=== PATIENT | male | born 1945 | race Caucasian/White ===

== ENCOUNTER 2017-08-11 12:11 | Inpatient (IN) | payer MEDICARE, OTHER ==
[~2017-08-11] VITALS: Ht 170.2 cm; Wt 62.6 kg
[~2017-08-11 12:11] MED LIST: ALBU0.63 IH; ALBU117P IH; ASPI81CT89 PO; BUDE180P IH; HYDR25TA32 PO; LAC PO; LEVO750T6 PO; LISI-420 PO; METH4TAB3 PO; SIMV40TA1 PO
[2017-08-11 12:53] VITALS: BP 169/92
--- NOTE | 2017-08-11 13:04 | NUR ---
PT AMBULATES BACK TO THE LOBBY
--- NOTE | 2017-08-11 13:17 | NUR ---
DR. RODRIGUEZ BEDSIDE EVALUATING PATIENT
--- NOTE | 2017-08-11 13:17 | NUR ---
71 M BIB SELF W C/O PRODUCTIVE COUGH YELLOW PLEGM, CHILLS, FEVER, "NOT FEELING GOOD" X SINCE LAST NIGHT; PT ALSO REPORTS OF CHEST PAIN WHILE COUGHING AND EPISODES OF CHEST PAIN LAST NIGHT. PT DENIES ANY CP CURRENTLY; PT IS AOX4. RR ARE EVEN AND UNLABORED. PT POSITIONED TO COMFORT, BED DOWN. NAD. VSS. ER MD AWARE OF PT STATUS. WILL CONTINUE TO MONITOR.
--- NOTE | 2017-08-11 13:17 | NUR ---
PATIENT TO ER BED 1
[2017-08-11] MEDS ORDERED: ASPIRIN 325 MG TAB PO ONE (13:20)
[2017-08-11] MEDS ORDERED: NACL 0.9% 500 ML IV ONE (13:20)
[2017-08-11] MEDS ORDERED: ALBUTEROL SULFATE/IPRATROPIU 3 ML SOL IH ONE (13:20)
[2017-08-11 13:43] LABS: BASOPHILS # (AUTO) 0.4 K/uL (0.00-0.22); BASOPHILS % (AUTO) 2.2 % (0.0-2.0); EOSINOPHILS % (AUTO) 0.1 % (0.0-4.0); HEMATOCRIT 50.6 % (36-52); HEMOGLOBIN 16.4 g/dL (12.0-18.0); LYMPHOCYTES # (AUTO) 0.7 K/uL (2.0-11.5); LYMPHOCYTES % (AUTO) 4.7 % (20.5-51.1); MEAN CORPUSCULAR HEMOGLOBIN 30 pg (27-31); MEAN CORPUSCULAR HGB CONC 32 g/dL (33-37); MEAN CORPUSCULAR VOLUME 91 fL (80-94); MONOCYTES # (AUTO) 0.6 K/uL (0.8-1.0); MONOCYTES % (AUTO) 3.6 % (1.7-9.3); NEUTROPHILS # (AUTO) 14.2 K/uL (1.8-7.7); NEUTROPHILS % (AUTO) 89.4 % (42.2-75.2); PLATELET COUNT (AUTO) 161 K/uL (140-450); RED BLOOD CELL COUNT(AUTO) 5.57 MIL/uL (4.20-6.10); RED CELL DISTRIBUTION WIDTH 14.1 % (11.6-13.7); WHITE BLOOD COUNT (AUTO) 15.9 K/uL (4.8-10.8)
[2017-08-11 13:55] LABS: POTASSIUM 4.5 mmol/L (3.5-5.1)
[2017-08-11 14:04] LABS: ALBUMIN 4.2 g/dL (3.4-5.0); ANION GAP 14.4 (8-16); CARBON DIOXIDE 29.1 mmol/L (21-32); CREATININE 1.5 mg/dL (0.7-1.3)
[2017-08-11 14:17] LABS: TOTAL BILIRUBIN 2.8 mg/dL (0.0-1.0)
[2017-08-11] MEDS ORDERED: NACL 0.9% 1,000 ML IV SCH (14:34)
[2017-08-11] MEDS ORDERED: DOCUSATE SODIUM 100 MG GELCAP PO PRN (14:35)
[2017-08-11] MEDS ORDERED: LORazepam 0.5 MG TAB PO PRN (14:35)
[2017-08-11] MEDS ORDERED: ALBUTEROL SULFATE/IPRATROPIU 3 ML SOL IH PRN (14:35)
[2017-08-11] MEDS ORDERED: MORPHINE SULFATE 2 MG/ML SYR IVP PRN (14:35)
[2017-08-11] MEDS ORDERED: ACETAMINOPHEN 325 MG TAB PO PRN (14:35)
[2017-08-11] MEDS ORDERED: ONDANSETRON 4 MG/2 ML VIAL IM/IVP PRN (14:35)
[2017-08-11] MEDS ORDERED: HYDROcodone/APAP 7.5/325 MG 1 TAB PO PRN (14:35)
[2017-08-11] MEDS ORDERED: ZOLPIDEM 5 MG TAB PO PRN (14:35)
[2017-08-11] MEDS ORDERED: ATRN INH ×2 (15:17)
[2017-08-11] MEDS ORDERED: PRON INH (15:17)
[2017-08-11] MEDS ORDERED: FISH1CAP3 PO (15:17)
[2017-08-11] MEDS ORDERED: ALEN70TA52 PO (15:17)
--- NOTE | 2017-08-11 15:25 | NUR ---
PT ARRIVED ON THE UNIT WITH 2 ER NURSES. GAVE REPORT AND LEFT. PT IS AWAKE AND ORIENTED. AMBULATED FROM THE GURNEY TO BED. GAIT STEADY. INTRODUCED MYSELF AND UPDATED THE BOARD. PT IS FEBRILE. 100.1 F ORAL TEMP. OTHERWISE V/S UNREMARKABLE. SKIN INTACT. ADMINISTERED YELLOW SOCKS, YELLOW BAND, AND YELLOW SIGN. AOX4. IV ON R AC 20G SL. MRSA DONE, ORDERED PT PB&J SANDWICH AND MILK FOR SNACK. WILL CONTINUE TO MONITOR PT.
[2017-08-11 15:26] LABS: PROTHROMBIN TIME 11.1 secs (10.8-13.4)
--- NOTE | 2017-08-11 15:30 | NUR ---
Patient will be admitted to care of [facility]. Admited to tele. Will go to room 104. Belongings list completed. bedsdie Report to christina cisse.
[2017-08-11] MEDS ORDERED: methylPREDNISolone SS 125 MG/2 ML VIAL IVP SCH (15:37)
[2017-08-11 15:40] LABS: CHOL/HDL RATIO 2.1 (1-4.5); FREE T4 (FREE THYROXINE) 1.11 ng/dL (0.76-1.46); MAGNESIUM 1.7 mg/dL (1.8-2.4); PHOSPHORUS 2.6 mg/dL (2.5-4.9); THYROID STIMULATING HORMONE 0.69 uIU/mL (0.34-3.74)
[2017-08-11 17:04] VITALS: BP 144/75
[2017-08-11] MEDS ORDERED: LEVOFLOXACIN 500 MG/D5W PREMIX 100 ML IV SCH (17:25)
--- NOTE | 2017-08-11 18:02 | NUR ---
PT EATING DINNER. ADMINISTERED LEVAQUIN. PT TOLERATING WELL. NO SIGNS OF DISTRESS. NO COMPLAINTS. WILL CONTINUE TO MONITOR PT.
[2017-08-11] MEDS: BUDESONIDE 0.25 MG/2 ML NEBU INH SCH (18:50)
[2017-08-11] MEDS: ALBUTEROL SULFATE/IPRATROPIU 3 ML SOL IH SCH (18:50)
--- NOTE | 2017-08-11 19:26 | NUR ---
ENDORSED PT TO THE WEDGER NURSE AT BEDSIDE FOR CONTINUITY OF CARE. PT IN STABLE CONDITION.
--- NOTE | 2017-08-11 19:27 | NUR ---
RECEIVED REPORT FROM DAY NURSE, PT IN STABLE CONDITION. NO S/S OF DISTRESS NOTED. PT IN STABLE CONDITION. PT IS AAOX4, ON ROOM AIR. IV TO THE R AC 20G, PATENT AND INTACT, INFUSING WELL. RESPIRATIONS ARE EVEN AND UNLABORED. SKIN IS WARM AND DRY TO TOUCH, COLOR WNL. INITIAL ASSESSMENT COMPLETED. PLAN OF CARE DISCUSSED WITH PT AT THE BEDSIDE, ALL SAFETY PRECAUTIONS MET, CALL LIGHT WITHIN REACH, BOARD UPDATED, WILL CONTINUE TO MONITOR Addendum: 08/11/17 at 1935 by Geni Hudson RN SKIN IS INTACT
[2017-08-11 20:00] VITALS: BP 126/62
[2017-08-11] MEDS: methylPREDNISolone SS 125 MG/2 ML VIAL IVP SCH (20:55)
[2017-08-12] VITALS: BP 114/64
[2017-08-12 04:00] VITALS: BP 124/68
[2017-08-12] MEDS: methylPREDNISolone SS 125 MG/2 ML VIAL IVP SCH ×2 (05:25→13:02)
[2017-08-12] MEDS: ALBUTEROL SULFATE/IPRATROPIU 3 ML SOL IH SCH ×2 (06:17→13:07)
[2017-08-12] MEDS: BUDESONIDE 0.25 MG/2 ML NEBU INH SCH (06:25)
[2017-08-12 07:02] LABS: HEMATOCRIT 43.3 % (36-52); HEMOGLOBIN 14.7 g/dL (12.0-18.0); MEAN CORPUSCULAR HEMOGLOBIN 31 pg (27-31); MEAN CORPUSCULAR HGB CONC 34 g/dL (33-37); MEAN CORPUSCULAR VOLUME 90 fL (80-94); PLATELET COUNT (AUTO) 136 K/uL (140-450); RED BLOOD CELL COUNT(AUTO) 4.79 MIL/uL (4.20-6.10); RED CELL DISTRIBUTION WIDTH 13.9 % (11.6-13.7); WHITE BLOOD COUNT (AUTO) 17.9 K/uL (4.8-10.8)
--- NOTE | 2017-08-12 07:10 | NUR ---
RECEIVED BEDSIDE REPORT FROM DRIVER WHEELCHAIR NURSE. PATIENT IS A&OX4. PATIENT DOES NOT COMPLAIN OF ANY CHEST PAIN AT THIS TIME. PATIENT'S RESPIRATIONS ARE UNLABORED AND SYMMETRICAL. PATIENT DOES NOT HAVE ANY RESPIRATORY DISTRESS OR DEPRESSION AT THIS TIME. PATIENT DOES NOT PRESENT WITH ANY FEVER. INSTRUCTED PATIENT TO CALL IF HE NEEDS ANY HELP WITH ANYTHING AND SHOWED HIM HIS CALL LIGHT. PATIENT DEMONSTRATED HOW TO USE THE CALL LIGHT. BED LOWERED AND CALL LIGHT WITHIN REACH. WILL CONTINUE TO MONITOR PATIENT.
--- NOTE | 2017-08-12 07:30 | NUR ---
GAVE REPORT TO DAY NURSE, PT IN STABLE CONDITION. NO S/S OF DISTRESS NOTED
[2017-08-12 07:47] LABS: LYMPHOCYTES % (MANUAL) 4 % (20-46); MONOCYTES % (MANUAL) 2 % (5-12)
[2017-08-12 07:48] LABS: ANION GAP 9.9 (8-16); CARBON DIOXIDE 30.4 mmol/L (21-32); CREATININE 1.3 mg/dL (0.7-1.3); POTASSIUM 4.3 mmol/L (3.5-5.1)
[2017-08-12 07:51] LABS: PHOSPHORUS 1.6 mg/dL (2.5-4.9)
[2017-08-12 08:00] VITALS: BP 139/77
[2017-08-12] MEDS ORDERED: ASPIRIN 81 MG TAB.CHEW PO SCH (09:00)
[2017-08-12] MEDS ORDERED: LISINOPRIL 20 MG TAB PO SCH (09:00)
[2017-08-12] MEDS ORDERED: LACTOBACILLUS RHAMNOSUS GG 1 EACH CAP PO SCH (09:00)
--- NOTE | 2017-08-12 09:09 | NUR ---
PATIENT HAS BEEN SCREENED AND CATEGORIZED MODERATE NUTRITION RISK. PATIENT WILL BE SEEN WITHIN 3-5 DAYS OF ADMISSION. 08/13/17-08/15/[address]
--- NOTE | 2017-08-12 11:37 | NUR ---
CM NOTE PER SEISMOGRAPHER MATTHEW, SEND REVIEWS ONLY TO [facility]. INITIAL REVIEW FAXED TO [facility] [phone] LUCIEN # [phone].
[2017-08-12 12:00] VITALS: BP 127/91
[2017-08-12] MEDS ORDERED: LEVO750T2 PO ×2 (13:08→15:58)
[2017-08-12] MEDS ORDERED: ASPI81CT95 PO ×2 (13:08→15:58)
[2017-08-12] MEDS ORDERED: LACT10CA PO ×2 (13:08→15:58)
--- NOTE | 2017-08-12 13:10 | NUR ---
PATIENT IS LAYING DOWN WATCHING TELEVISION. ADMINISTERED SOLUMEDROL TO PATIENT VIA IV LINE ON LEFT FOREARM. PATIENT TOLERATED WELL. PATIENT IS IN STABLE CONDITION.
[2017-08-12] MEDS ORDERED: guaiFENesin 20 MG/ML UDC PO PRN (15:10)
--- NOTE | 2017-08-12 15:17 | NUR ---
PT WATCHING TV. NO SIGNS OF DISTRESS. NO COMPLAINTS AT THIS TIME. WILL CONTINUE TO MONITOR PT.
[2017-08-12] MEDS ORDERED: SODIUM PHOS / POTASSIUM PHOS 1 PKT PDR PO SCH (15:37)
[2017-08-12] MEDS ORDERED: METH4TAB3 PO (15:55)
[2017-08-12 16:00] VITALS: BP 126/67
[2017-08-12 16:07] LABS: BARBITURATE, URINE NEG. ng/ml (NEG <=200); BENZODIAZEPINE, URINE NEG. ng/mL (NEG <=200); CANNABINOID, URINE NEG. ng/mL (NEG <=50); COCAINE, URINE NEG. ng/mL (NEG <=300); OPIATE, URINE NEG. ng/mL (NEG <=2000); PHENCYCLIDINE SCREEN,URINE NEG. ng/mL (NEG <=25)
[2017-08-12 16:24] LABS: APPEARANCE,URINE CLEAR (CLEAR); BILIRUBIN,URINE NEGATIVE (NEGATIVE); BLOOD, URINE NEGATIVE (NEGATIVE); COLOR,URINE YELLOW (YELLOW); LEUKOCYTE ESTERASE ,URINE NEGATIVE (NEGATIVE); NITRITE, URINE NEGATIVE (NEGATIVE); PH,URINE 5.5 (5.0-9.0); UGLUCOSE 2+ (NEGATIVE)
--- NOTE | 2017-08-12 17:47 | NUR ---
DISCHARGE INSTRUCTIONS GIVEN TO THE SALES REPRESENTATIVE GRAPHIC ART NURSE. PT VERBALIZED UNDERSTANDING. REMOVED IV, CANNULA INTACT. NO BLEEDING NOTED. REMOVED TELE MONITOR. REMOVED ID BANDS. PT WILL GET DRESSED, HAVE DINNER AND WHEN FAMILY COMES TO PICK HIM UP, HE WILL LET US KNOW SO WE CAN TAKE HIM OUT IN A WHEELCHAIR.
--- NOTE | 2017-08-12 18:20 | NUR ---
FAMILY MEMBER HERE. PT IS READY TO GO. REFUSED WHEELCHAIR. WALKED OUT WITH FAMILY AT HIS SIDE AND GINA ZHONG. PT IN STABLE CONDITION.
[2017-08-12] MEDS ORDERED: SIMVASTATIN 40 MG TAB PO SCH (21:00)
[2017-08-12] MEDS ORDERED: LEVOFLOXACIN 250 MG/D5 PREMIX 50 ML IV SCH (21:00)
[2017-08-12] MEDS ORDERED: methylPREDNISolone SS 40 MG/ML VIAL IVP SCH (21:00)
[2017-08-13 07:25] LABS: T4 (THYROXINE) 7.9 ug/dL (4.5 - 12.0)
== END 2017-08-12 18:20 | disposition home or self-care (01) | DRG 205 ==
LOC: MED 12:11 → MTU 14:34
PROVIDERS: ADMIT Family Medicine Sports Medicine; ATTEND Family Medicine Sports Medicine
DX: M94.0 Chondrocostal junction syndrome [Tietze] (principal); N17.0 Acute kidney failure with tubular necrosis; J96.01 Acute respiratory failure with hypoxia; I50.43 Acute on chronic combined systolic (congestive) and diastolic (congestive) heart failure; J44.1 Chronic obstructive pulmonary disease with (acute) exacerbation; Q25.43 Congenital aneurysm of aorta; I42.9 Cardiomyopathy, unspecified; I11.0 Hypertensive heart disease with heart failure; I25.2 Old myocardial infarction; Z87.891 Personal history of nicotine dependence; Z79.899 Other long term (current) drug therapy; M81.0 Age-related osteoporosis without current pathological fracture; I45.10 Unspecified right bundle-branch block; Z88.8 Allergy status to other drugs, medicaments and biological substances
CPT/HCPCS: 36415; 71045; 80048; 80053; 80305; 81003; 82150; 83036; 83605; 83690; 83735; 83880; 84100; 84436; 84439; 84443; 84479; 84484; 85025; 85610; 85730; 87040; 87081; 87086; 87804; 93005; 94640; 99285; J1956; J2930; J7030; J7620; J7626; Q0092

== ENCOUNTER 2017-11-20 11:42 | Emergency (ER) | payer MEDICARE ==
[~2017-11-20] VITALS: Ht 170.2 cm; Wt 59.0 kg
[~2017-11-20 11:42] MED LIST changes: +ACET-2863 PO; -ALBU0.63 IH; -ALBU117P IH; +ALEN70TA52 PO; +AMOX-999 PO; -ASPI81CT89 PO; +ATRN INH; -BUDE180P IH; +DOCU-299 PO; +FISH1CAP3 PO; -HYDR25TA32 PO; -LAC PO; +LACT1.4C PO; -LEVO750T6 PO; -METH4TAB3 PO; +PRON INH
--- NOTE | 2017-11-20 11:46 | NUR ---
PT AMBULATED BACK TO ALIS WITH STEADY GAIT
[2017-11-20 11:48] VITALS: BP 199/97
--- NOTE | 2017-11-20 11:59 | NUR ---
PT AMBULATED TO ER BED 10
--- NOTE | 2017-11-20 12:15 | NUR ---
71m bib self with c/o left rib pain upon inspiration x yeterday "when picking up a piece of paper on the floor". Patient denies any injury or fall. No ecchymosis note to left rib area. Patient denies any cp or sob. Pt is aox4 with steady gait. RR are even and unlabored. Pulse ox=99% on ra. No acute distress noted. Awaiting er md green. Will continue to monitor.
--- NOTE | 2017-11-20 12:21 | NUR ---
Patient being evaluated by DR HERNANDES at bedside.
[2017-11-20] MEDS ORDERED: NACL 0.9% 1,000 ML IV SCH (12:38)
[2017-11-20] MEDS ORDERED: KETOROLAC 30 MG/ML VIAL IVP ONE (12:40)
[2017-11-20] MEDS ORDERED: LACTULOSE 20 GM/30 ML UDC PO ONE (12:40)
[2017-11-20] MEDS ORDERED: MORPHINE SULFATE 2 MG/ML SYR IVP ONE (12:40)
[2017-11-20 13:15] LABS: BASOPHILS % (AUTO) 0.9 % (0.0-2.0); EOSINOPHILS # (AUTO) 0.3 K/uL (0-0.4); EOSINOPHILS % (AUTO) 4.9 % (0.0-4.0); HEMATOCRIT 47.1 % (36-52); HEMOGLOBIN 15.4 g/dL (12.0-18.0); LYMPHOCYTES # (AUTO) 1.3 K/uL (2.0-11.5); LYMPHOCYTES % (AUTO) 24.7 % (20.5-51.1); MEAN CORPUSCULAR HEMOGLOBIN 29 pg (27-31); MEAN CORPUSCULAR HGB CONC 33 g/dL (33-37); MEAN CORPUSCULAR VOLUME 89.9 fL (80-94); MONOCYTES # (AUTO) 0.6 K/uL (0.8-1.0); MONOCYTES % (AUTO) 11.6 % (1.7-9.3); NEUTROPHILS # (AUTO) 2.9 K/uL (1.8-7.7); NEUTROPHILS % (AUTO) 57.9 % (42.2-75.2); PLATELET COUNT (AUTO) 173 K/uL (140-450); RED BLOOD CELL COUNT(AUTO) 5.23 MIL/uL (4.20-6.10); RED CELL DISTRIBUTION WIDTH 14.7 % (11.6-13.7); WHITE BLOOD COUNT (AUTO) 5.1 K/uL (4.8-10.8)
[2017-11-20] MEDS ORDERED: MORPHINE SULFATE 4 MG/ML SYR ONE (13:17)
[2017-11-20 13:20] LABS: ANION GAP 8.1 (8-16); CARBON DIOXIDE 33.3 mmol/L (21-32); CREATININE 1.2 mg/dL (0.7-1.3); POTASSIUM 4.4 mmol/L (3.5-5.1)
[2017-11-20 13:27] LABS: ALBUMIN 3.5 g/dL (3.4-5.0); TOTAL BILIRUBIN 0.9 mg/dL (0.0-1.0)
[2017-11-20 13:40] LABS: PROTHROMBIN TIME 10.4 secs (10.8-13.4)
[2017-11-20 14:26] LABS: APPEARANCE,URINE CLEAR (CLEAR); BILIRUBIN,URINE NEGATIVE (NEGATIVE); BLOOD, URINE NEGATIVE (NEGATIVE); COLOR,URINE YELLOW (YELLOW); LEUKOCYTE ESTERASE ,URINE NEGATIVE (NEGATIVE); NITRITE, URINE NEGATIVE (NEGATIVE); PH,URINE 6.5 (5.0-9.0); UGLUCOSE NEGATIVE (NEGATIVE)
--- NOTE | 2017-11-20 14:36 | NUR ---
Patient being reevaluated by DR HERNANDES at bedside.
[2017-11-20 16:30] VITALS: BP 170/82
--- NOTE | 2017-11-20 16:30 | NUR ---
Patient discharged with v/s stable. Written and verbal after care instructions given and explained. Patient alert, oriented and verbalized understanding of instructions. Ambulatory with steady gait. All questions addressed prior to discharge. ID band removed. Patient advised to follow up with PMD. Rx of Albuterol, Prednisone, and Cipro given. Patient educated on indication of medication including possible reaction and side effects. Opportunity to ask questions provided and answered.
== END 2017-11-20 16:30 | disposition home or self-care (01) ==
LOC: MED 11:42
DX: K57.30 Diverticulosis of large intestine without perforation or abscess without bleeding (principal); J44.9 Chronic obstructive pulmonary disease, unspecified; I10 Essential (primary) hypertension; R94.31 Abnormal electrocardiogram [ECG] [EKG]; I25.2 Old myocardial infarction; Z88.8 Allergy status to other drugs, medicaments and biological substances; Z79.899 Other long term (current) drug therapy; Z87.891 Personal history of nicotine dependence
CPT/HCPCS: 36415; 71045; 74176; 80053; 81003; 82150; 82550; 83690; 84484; 85025; 85379; 85610; 85730; 93005; 96361; 96374; 96375; 99285; J1885; J2270; J7030; Q0092

== ENCOUNTER 2018-08-11 11:29 | Emergency (ER) | payer MEDICARE, OTHER ==
[~2018-08-11] VITALS: Ht 170.2 cm; Wt 63.0 kg
[~2018-08-11 11:29] MED LIST changes: -ACET-2863 PO; -ALEN70TA52 PO; +ALEN70TA9 PO; +HYDR-5123 PO
--- NOTE | 2018-08-11 11:31 | NUR ---
PT AMBULATES TO BED 6
[2018-08-11 11:35] VITALS: BP 171/88
--- NOTE | 2018-08-11 11:37 | NUR ---
RT AT BEDSIDE.
[2018-08-11] MEDS ORDERED: ALBUTEROL SULFATE/IPRATROPIU 3 ML SOL IH ONE ×3 (11:40→16:54)
--- NOTE | 2018-08-11 11:45 | NUR ---
A 72M EMPHYSEMA PT BIB SELF WITH C/O CHRONIC SOB WORSE THIS MORNING WITH PRODUCTIVE COUGH. PER PT HE WAS USING HIS NEBULIZER YESTERDAY MORNING AND ALBUTEROL INHALER THIS MORNING WITH NO RELIEF. USES ACCESSORY MUSCLE, SPEAK SHORT SENTENCES. SPO2 96% ON ROOM AIR. HE WAS LAST SEEN ON 07/25/2018 FOR SOB. DENIES ANY PAIN AT THIS TIME. SYMMETRICAL CHEST RISE AND FALL NOTED. PT. IS WARM AND DRY TO TOUCH. ER MD MADE AWARE. SAFETY PRECAUTIONS IMPLEMENTED. WILL CONTINUE TO MONITOR.
[2018-08-11] MEDS ORDERED: NACL 0.9% 1,000 ML IV SCH (11:48)
[2018-08-11] MEDS ORDERED: PIPERACILLIN/TAZOBACTAM 3.375 GM in DEXTROSE 5% 50 ML IV ONE (11:50)
[2018-08-11] MEDS ORDERED: methylPREDNISolone SS 125 MG/2 ML VIAL IVP ONE (11:50)
--- NOTE | 2018-08-11 12:00 | NUR ---
influenza a and b specimen collected. given to mushroom laborer
[2018-08-11 12:16] LABS: BASOPHILS # (AUTO) 0.1 K/uL (0.00-0.22); BASOPHILS % (AUTO) 0.7 % (0.0-2.0); EOSINOPHILS # (AUTO) 0.1 K/uL (0-0.4); EOSINOPHILS % (AUTO) 0.8 % (0.0-4.0); HEMATOCRIT 47.3 % (36-52); HEMOGLOBIN 15.4 g/dL (12.0-18.0); LYMPHOCYTES # (AUTO) 1.3 K/uL (2.0-11.5); LYMPHOCYTES % (AUTO) 14.6 % (20.5-51.1); MEAN CORPUSCULAR HEMOGLOBIN 30 pg (27-31); MEAN CORPUSCULAR HGB CONC 33 g/dL (33-37); MEAN CORPUSCULAR VOLUME 91.3 fL (80-94); MONOCYTES # (AUTO) 0.7 K/uL (0.8-1.0); MONOCYTES % (AUTO) 8.3 % (1.7-9.3); NEUTROPHILS # (AUTO) 6.8 K/uL (1.8-7.7); NEUTROPHILS % (AUTO) 75.6 % (42.2-75.2); PLATELET COUNT (AUTO) 184 K/uL (140-450); RED BLOOD CELL COUNT(AUTO) 5.18 MIL/uL (4.20-6.10); RED CELL DISTRIBUTION WIDTH 14.7 % (11.6-13.7)
[2018-08-11] MEDS ORDERED: PIPERACILLIN/TAZOBACTAM 3.375 GM VIAL IV ONE (12:19)
--- NOTE | 2018-08-11 12:35 | NUR ---
pt. resting in bed, hob elevated. vss. pt. unable to provide urine sample at this time. calvin zapien made aware
[2018-08-11 12:59] LABS: PROTHROMBIN TIME 9.5 secs (10.8-13.4)
--- NOTE | 2018-08-11 13:18 | NUR ---
PT. RESTING COMFORTABLY IN BED, RR EVEN AND UNLABORED. VSS. WILL CONTINUE TO MONITOR. SAFETY PRECAUTIONS IN PLACE
[2018-08-11 13:28] LABS: APPEARANCE,URINE CLEAR (CLEAR); BILIRUBIN,URINE NEGATIVE (NEGATIVE); BLOOD, URINE NEGATIVE (NEGATIVE); COLOR,URINE YELLOW (YELLOW); LEUKOCYTE ESTERASE ,URINE TRACE (NEGATIVE); NITRITE, URINE NEGATIVE (NEGATIVE); UGLUCOSE NEGATIVE (NEGATIVE)
[2018-08-11 13:58] LABS: RBC,URINE 0-5 (RARE) /HPF (0-5); WBC,URINE 6-15 (FEW) /HPF (0-5)
[2018-08-11 13:58] LABS: ANION GAP 7.7 (8-16); CARBON DIOXIDE 29.6 mmol/L (21-32); CREATININE 1.3 mg/dL (0.7-1.3); POTASSIUM 4.3 mmol/L (3.5-5.1)
[2018-08-11 14:04] LABS: TOTAL BILIRUBIN 2.1 mg/dL (0.0-1.0)
[2018-08-11 14:25] LABS: ALBUMIN 3.5 g/dL (3.4-5.0)
--- NOTE | 2018-08-11 14:53 | NUR ---
PT. RESTING COMFORTABLY IN BED, HOB ELEVATED. VSS. WILL CONTINUE TO MONITOR.
--- NOTE | 2018-08-11 15:47 | NUR ---
PT. RESTING COMFORTABLY IN BED, SLEEPING. HOB ELEVATED. RR EVEN AND UNLABORED. VSS. WILL CONTINUE TO MONITOR.
--- NOTE | 2018-08-11 17:13 | NUR ---
Patient discharged with v/s stable. Written and verbal after care instructions given and explained. Patient alert, oriented and verbalized understanding of instructions. Ambulatory with steady gait. All questions addressed prior to discharge. ID band removed. Patient advised to follow up with PMD. Rx of LEVAQUIN/PROMETHAZINE/PREDNISONE given. Patient educated on indication of medication including possible reaction and side effects. Opportunity to ask questions provided and answered. I CALLED PT'S FAMILY MEMBER UPON HIS REQUEST FOR PRACTICE BILLING ASSOCIATE, JULIANE.
[2018-08-11 17:15] VITALS: BP 143/75
== END 2018-08-11 17:13 | disposition home or self-care (01) ==
LOC: MED 11:29
DX: J44.1 Chronic obstructive pulmonary disease with (acute) exacerbation (principal); I10 Essential (primary) hypertension; E78.5 Hyperlipidemia, unspecified; F17.200 Nicotine dependence, unspecified, uncomplicated; Z88.8 Allergy status to other drugs, medicaments and biological substances; Z79.899 Other long term (current) drug therapy
CPT/HCPCS: 36415; 36600; 71045; 80053; 81001; 83605; 83735; 83880; 84484; 85025; 85610; 85730; 87040; 87086; 87804; 93005; 94640; 96365; 96375; 99284; J2543; J2930; J7030; J7620

== ENCOUNTER 2018-09-13 10:57 | Emergency (ER) | payer OTHER ==
[~2018-09-13] VITALS: Ht 167.6 cm; Wt 63.5 kg
[2018-09-13 11:00] VITALS: BP 178/75
--- NOTE | 2018-09-13 11:05 | NUR ---
PATIENT AMB TO BED 11
[2018-09-13] MEDS ORDERED: NACL 0.9% 500 ML IV SCH (11:34)
[2018-09-13] MEDS ORDERED: methylPREDNISolone SS 125 MG/2 ML VIAL IVP ONE (11:35)
[2018-09-13] MEDS ORDERED: MAG SULF 2000 MG/WATER PREMIX 50 ML IV ONE (11:35)
[2018-09-13] MEDS ORDERED: ALBUTEROL SULFATE/IPRATROPIU 3 ML SOL IH ONE (11:35)
--- NOTE | 2018-09-13 11:35 | NUR ---
72 Y M BIB SELF C/O PRODUCTIVE COUGH X JULIO CESAR WITH SOB, DENIES ANY CHEST PAIN. RIB PAIN INTERMITTENT WHEN WAKING UP AT NIGHT WHEN COUGHING. FEVER AND CHILLS X 3 DAYS AGO. AFEBRILE AT THIS TIME, PATIENT STATES THAT COUGH IS PRODUCTIVE WITH FOAM AT TIMES, BED IS LOWERED AND LOCKED, BED RAIL X1, ERMD NOTIFIED MED HX: COPD, MORALES (2001), HTN , HYPERLIPIDEMIA ALLERGIES : ATENOLOL
--- NOTE | 2018-09-13 11:35 | NUR ---
DR LINDQUIST AT BEDSIDE
[2018-09-13] MEDS ORDERED: ASPIRIN 81 MG TAB.CHEW PO ONE (11:45)
[2018-09-13] MEDS ORDERED: KETOROLAC 30 MG/ML VIAL IVP ONE (11:45)
[2018-09-13 12:17] LABS: BASOPHILS % (AUTO) 0.8 % (0.0-2.0); EOSINOPHILS # (AUTO) 0.2 K/uL (0-0.4); EOSINOPHILS % (AUTO) 2.7 % (0.0-4.0); HEMATOCRIT 50.4 % (36-52); HEMOGLOBIN 16.4 g/dL (12.0-18.0); LYMPHOCYTES # (AUTO) 1.3 K/uL (2.0-11.5); MEAN CORPUSCULAR HEMOGLOBIN 30 pg (27-31); MEAN CORPUSCULAR HGB CONC 33 g/dL (33-37); MEAN CORPUSCULAR VOLUME 91.5 fL (80-94); MONOCYTES # (AUTO) 0.6 K/uL (0.8-1.0); MONOCYTES % (AUTO) 10.1 % (1.7-9.3); NEUTROPHILS # (AUTO) 3.7 K/uL (1.8-7.7); NEUTROPHILS % (AUTO) 64.4 % (42.2-75.2); PLATELET COUNT (AUTO) 220 K/uL (140-450); RED BLOOD CELL COUNT(AUTO) 5.51 MIL/uL (4.20-6.10); RED CELL DISTRIBUTION WIDTH 14.5 % (11.6-13.7); WHITE BLOOD COUNT (AUTO) 5.7 K/uL (4.8-10.8)
--- NOTE | 2018-09-13 12:20 | NUR ---
CHECKED ON PATIENT, MEDICATION STILL RUNNING, BED IS DOWN AND LOCKED, RAIL X1
[2018-09-13 12:42] LABS: PROTHROMBIN TIME 9.7 secs (10.8-13.4)
[2018-09-13 12:54] LABS: ANION GAP 8.3 (8-16); CARBON DIOXIDE 33.1 mmol/L (21-32); CREATININE 1.3 mg/dL (0.7-1.3); POTASSIUM 4.4 mmol/L (3.5-5.1)
[2018-09-13 12:58] LABS: ALBUMIN 3.7 g/dL (3.4-5.0); TOTAL BILIRUBIN 0.8 mg/dL (0.0-1.0)
[2018-09-13 13:50] VITALS: BP 178/83
--- NOTE | 2018-09-13 13:52 | NUR ---
Patient discharged with v/s stable. Written and verbal after care instructions given and explained. Patient alert, oriented and verbalized understanding of instructions. Ambulatory with steady gait. All questions addressed prior to discharge. ID band removed. Patient advised to follow up with PMD. Rx of atrovent, albuterol sulfate, and nebulizer system given. Patient educated on indication of medication including possible reaction and side effects. Opportunity to ask questions provided and answered.
--- NOTE | 2018-09-16 08:06 | NUR ---
Late entry. COnfirmed with RN that 500 ml 0.9NS IV was started at 1202 and ended at 1312.
== END 2018-09-13 13:52 | disposition home or self-care (01) ==
LOC: MED 10:57
DX: J44.1 Chronic obstructive pulmonary disease with (acute) exacerbation (principal); I25.2 Old myocardial infarction; I10 Essential (primary) hypertension; Z79.891 Long term (current) use of opiate analgesic; Z79.2 Long term (current) use of antibiotics; Z79.899 Other long term (current) drug therapy; Z88.8 Allergy status to other drugs, medicaments and biological substances
CPT/HCPCS: 36415; 36600; 71045; 80053; 82803; 83605; 83880; 84484; 85025; 85610; 85730; 87040; 93005; 94640; 96365; 96366; 96375; 99284; J1885; J2930; J3475; J7030; J7620

== ENCOUNTER 2019-01-02 23:25 | Emergency (ER) | payer OTHER ==
[~2019-01-02] VITALS: Ht 170.2 cm; Wt 65.8 kg
[2019-01-02 23:34] VITALS: BP 156/78
--- NOTE | 2019-01-02 23:36 | NUR ---
TO BED A/W BED, AMBULATORY
--- NOTE | 2019-01-03 00:10 | NUR ---
PT AMBULATED TO BED 12
[2019-01-03 00:20] VITALS: BP 156/78
--- NOTE | 2019-01-03 00:20 | NUR ---
73 Y/O M PRESENTED TO ED WITH C/O R SIDE NECK PAIN. /10 PAIN. PER PT " I WAS WATCHING TV AND I GOT THIS PAIN IN MY NECK AND I COULDNT HEAR ANYTHING ON THE RIGHT SIDE." PT STATED DURING AMBULATING AT HOME, PT FELT DIZZY AND HAD RINGING IN HIS EARS. AAOX4. SPEECH CLEAR. FULL ROM TO NECK. ERMD NOTIFIED. WILL CONTINUE TO MONITOR.
[2019-01-03] MEDS ORDERED: NACL 0.9% 1,000 ML IV ONE (00:50)
[2019-01-03] MEDS ORDERED: MECLIZINE 25 MG TAB PO ONE (00:50)
[2019-01-03 01:29] LABS: BASOPHILS # (AUTO) 0.1 K/uL (0.00-0.22); BASOPHILS % (AUTO) 0.6 % (0.0-2.0); HEMATOCRIT 43.2 % (36-52); HEMOGLOBIN 14.1 g/dL (12.0-18.0); LYMPHOCYTES # (AUTO) 0.8 K/uL (2.0-11.5); LYMPHOCYTES % (AUTO) 9.7 % (20.5-51.1); MEAN CORPUSCULAR HEMOGLOBIN 30 pg (27-31); MEAN CORPUSCULAR HGB CONC 33 g/dL (33-37); MEAN CORPUSCULAR VOLUME 91.3 fL (80-94); MONOCYTES # (AUTO) 0.8 K/uL (0.8-1.0); MONOCYTES % (AUTO) 10.2 % (1.7-9.3); NEUTROPHILS # (AUTO) 6.5 K/uL (1.8-7.7); PLATELET COUNT (AUTO) 270 K/uL (140-450); RED BLOOD CELL COUNT(AUTO) 4.73 MIL/uL (4.20-6.10); WHITE BLOOD COUNT (AUTO) 8.1 K/uL (4.8-10.8)
[2019-01-03 01:39] LABS: NEUTROPHILS % (AUTO) 79.5 % (42.2-75.2)
--- NOTE | 2019-01-03 01:49 | NUR ---
PT TAKEN TO CT VIA WHEELCHAIR
[2019-01-03 01:51] LABS: ANION GAP 12.2 (8-16); CARBON DIOXIDE 27.3 mmol/L (21-32); CHLORIDE 107 mmol/L (98-107); CREATININE 1.3 mg/dL (0.7-1.3); GLUCOSE 99 mg/dL (74-106); POTASSIUM 4.5 mmol/L (3.5-5.1); SODIUM SERUM 142 mmol/L (136-145); UREA NITROGEN, BLOOD 21 mg/dL (7-18)
[2019-01-03 01:57] LABS: ASPARTATE AMINOTRANSFERASE 13 U/L (15-37); TOTAL BILIRUBIN 0.3 mg/dL (0.0-1.0)
--- NOTE | 2019-01-03 01:58 | NUR ---
PT RETURNED FROM CT VIA WHEEL CHAIR
--- NOTE | 2019-01-03 02:30 | NUR ---
AMBUALTED PT 20 FT, STEADY GAIT OBSERVED.
== END 2019-01-03 02:47 | disposition home or self-care (01) ==
LOC: MED 23:25
DX: R42 Dizziness and giddiness (principal); R51 Headache; H91.91 Unspecified hearing loss, right ear; J44.9 Chronic obstructive pulmonary disease, unspecified; I10 Essential (primary) hypertension; I25.2 Old myocardial infarction; Z88.8 Allergy status to other drugs, medicaments and biological substances; Z79.899 Other long term (current) drug therapy
CPT/HCPCS: 36415; 70450; 80053; 85025; 96360; 99284; J7030; J8597

== ENCOUNTER 2020-01-04 10:47 | Emergency (ER) | payer OTHER ==
[~2020-01-04] VITALS: Ht 170.2 cm; Wt 65.3 kg
[2020-01-04 10:48] VITALS: BP 135/82
--- NOTE | 2020-01-04 10:52 | NUR ---
PT TAKEN TO BED 1 VIA WHEELCHAIR.
--- NOTE | 2020-01-04 10:54 | NUR ---
DR. RODRIGUEZ AT [facility] EVALUATING PT.
[2020-01-04] MEDS ORDERED: IBUPROFEN 400 MG TAB PO ONE (10:55)
--- NOTE | 2020-01-04 11:00 | NUR ---
PT C/O LT ANKLE AND L KNEE PAIN WITH 8/10 INTENSITY S/P FELL ON SATURDAY WHILE ADJUSTING CAMERA, PT WAS STANDING ON TABLE AND FELL. +3 EDEMA W/ BRUISING AND ERYTHEMA NOTICED AND TENDERNESS TO LIGHT PALPATION ON PT LT FOOT. VSS; PATIENT POSITIONED FOR COMFORT; HOB ELEVATED; BEDRAILS UP X2; BED DOWN. ER MD MADE AWARE OF PT STATUS.
--- NOTE | 2020-01-04 11:14 | NUR ---
PT HAS BEEN TAKEN TO XRAY VIA W/C.
[2020-01-04 12:03] VITALS: BP 140/62
--- NOTE | 2020-01-04 12:03 | NUR ---
Patient discharged with v/s stable. Written and verbal after care instructions given and explained. Patient alert, oriented and verbalized understanding of instructions. WHEELCHAIR ASSIST. All questions addressed prior to discharge. ID band removed. Patient advised to follow up with PMD. Rx of MOTRIN given. Patient educated on indication of medication including possible reaction and side effects. Opportunity to ask questions provided and answered.
--- NOTE | 2020-01-04 12:37 | NUR ---
CALLED PHONE NUMBER [phone] & [phone] WITH BUSY LINE SOUNDS. PT IS WAITING IN THE LOBBY FOR COMPOSITE TECHNICIAN.
== END 2020-01-04 12:03 | disposition home or self-care (01) ==
LOC: MED 10:47
DX: S92.592A Other fracture of left lesser toe(s), initial encounter for closed fracture (principal); S93.692A Other sprain of left foot, initial encounter; M25.562 Pain in left knee; W18.39XA Other fall on same level, initial encounter; Y93.89 Activity, other specified; Y92.89 Other specified places as the place of occurrence of the external cause; Y99.8 Other external cause status; I11.0 Hypertensive heart disease with heart failure; Z88.8 Allergy status to other drugs, medicaments and biological substances
CPT/HCPCS: 73562; 73630; 99284

== ENCOUNTER 2020-06-21 09:47 | Emergency (ER) | payer OTHER ==
[~2020-06-21] VITALS: Ht 170.2 cm; Wt 67.6 kg
[~2020-06-21 09:47] MED LIST changes: +ALEN70TA74 PO; -ALEN70TA9 PO
--- NOTE | 2020-06-21 09:47 | NUR ---
Patient BIBA ALS, transferred to bed 2. RN evaluating patient at bedside.
[2020-06-21 09:54] VITALS: BP 157/76
--- NOTE | 2020-06-21 10:02 | NUR ---
Dr. Deleon is evaluating the patient at bedside.
--- NOTE | 2020-06-21 10:16 | NUR ---
74/M BIBA FROM HOME C/O SOB AND WHEEZING UPON WAKING THIS MORNING. ALSO STATES COUGH X FEW DAYS. DENIES FEVER OR COVID POS CONTACTS. EMS FOUND PT SAT 90% ON RA, ADMINISTERED NEB BREATHING TX IN ROUTE, ARRIVED 96% VIA 4L NC. IN ER, VSS. PT DOES NOT APPEAR TO BE IN DISTRESS. AUDIBLE WHEEZES ON ALL LUNG DE LA CRUZ. PT RESTING COMFORTABLY IN BED. ERMD MADE AWARE OF PT STATUS. HX- COPD, HTN ALLERGY: ATENOLOL
--- NOTE | 2020-06-21 10:32 | NUR ---
COVID SWAB ([facility]) DONE. BROUGHT SPECIMEN TO LAB.
--- NOTE | 2020-06-21 11:50 | NUR ---
Patient discharged with v/s stable. Written and verbal after care instructions given and explained. Patient alert, oriented and verbalized understanding of instructions. Ambulatory with steady gait. All questions addressed prior to discharge. ID band removed. Patient advised to follow up with PMD. Rx of PREDNISONE, DOXYCYCLINE given. Patient educated on indication of medication including possible reaction and side effects. Opportunity to ask questions provided and answered.
[2020-06-21 11:55] VITALS: BP 157/76
--- NOTE | 2020-06-21 11:56 | NUR ---
[id number] (JULIANE) CALLED FOR PT FOOD INSPECTOR [phone]
== END 2020-06-21 11:50 | disposition home or self-care (01) ==
LOC: MED 09:47
DX: J18.9 Pneumonia, unspecified organism (principal); J44.9 Chronic obstructive pulmonary disease, unspecified; I10 Essential (primary) hypertension; I51.89 Other ill-defined heart diseases; Z88.8 Allergy status to other drugs, medicaments and biological substances; Z79.899 Other long term (current) drug therapy; Z20.828 Contact with and (suspected) exposure to other viral communicable diseases
CPT/HCPCS: 71045; 99284; U0003

== ENCOUNTER 2020-07-26 13:16 | Emergency (ER) | payer OTHER ==
[~2020-07-26] VITALS: Ht 165.1 cm; Wt 65.8 kg
[2020-07-26 14:22] VITALS: BP 171/98
--- NOTE | 2020-07-26 14:25 | NUR ---
Patient ambulated to lobby with steady gait
[2020-07-26 16:20] VITALS: BP 165/90
--- NOTE | 2020-07-26 16:20 | NUR ---
Patient discharged with v/s stable. Written and verbal after care instructions about COPD given and explained. Patient alert, oriented and verbalized understanding of instructions. Ambulatory with steady gait. All questions addressed prior to discharge. ID band removed. Patient advised to follow up with PMD. Rx of albuterol given. Patient educated on indication of medication including possible reaction and side effects. Opportunity to ask questions provided and answered.
== END 2020-07-26 16:20 | disposition home or self-care (01) ==
LOC: MED 13:16
DX: J44.9 Chronic obstructive pulmonary disease, unspecified (principal); R09.02 Hypoxemia; I10 Essential (primary) hypertension; I25.2 Old myocardial infarction; Z88.8 Allergy status to other drugs, medicaments and biological substances; Z79.899 Other long term (current) drug therapy; Z98.890 Other specified postprocedural states
CPT/HCPCS: 36600; 82803; 99283

== ENCOUNTER 2021-07-07 10:32 | Emergency (ER) | payer MEDICARE, OTHER ==
[~2021-07-07] VITALS: Ht 170.2 cm; Wt 68.0 kg
[~2021-07-07 10:32] MED LIST changes: -ALEN70TA74 PO; +FOS70 PO; +HYDR-5080 PO; -HYDR-5123 PO; -LISI-420 PO; +LISI20TA29 PO
--- NOTE | 2021-07-07 10:40 | NUR ---
75 Y MALE FROM HOME DUE TO CHEST PAIN X2 DAYS AND SOB SINCE THIS AM. PER PT HE HAS HAD A COUGH X2 DAYS AND STARTED TO EXPERINCE SOB THIS AM. CURRENT 02 77% ON RA AND WHEEZING HEARD THROUGHOUT. PT STATED HE ONLY EXPERINCES CHEST PAIN WHEN HE STARTS TO COUGH, BUT THE PAIN IS NON-RADIAITING. PT CURRENTLY PLACED ON NON-RB AT 15L AND CURRENTLY SATING AT 100%. COUGH IS PRODUCTIVE AND WET. SKIN DRY AND INTACT AT THIS TIME. PMH: COPD, AK NKA Addendum: 07/07/21 at 1735 by [email or web address] ALLERGIES: ATENOLOL
[2021-07-07] MEDS ORDERED: ALBUTEROL SULFATE/IPRATROPIU 3 ML SOL IH ONE (10:41)
--- NOTE | 2021-07-07 10:41 | NUR ---
PT PLACED ON 15 NON-RB AT THIS TIME. PT CURRENTLY SATING AT 100%
[2021-07-07 10:45] VITALS: BP 199/92
[2021-07-07] MEDS ORDERED: methylPREDNISolone SS 125 MG/2 ML VIAL IVP ONE (10:45)
[2021-07-07] MEDS ORDERED: MAG SULF 2000 MG/WATER PREMIX 50 ML IV ONE (10:45)
--- NOTE | 2021-07-07 10:45 | NUR ---
PT PROVIDED WITH BREATHING TX BESIDE. CURRENTLY SATING AT 100%
--- NOTE | 2021-07-07 10:49 | NUR ---
18 G IV ESTABLISHED IN R AC AND BLOOD WORK COLLECTED FROM IV. BLOOD WALKED OVER TO LAB BY MCKINLEY
[2021-07-07 10:56] LABS: BASOPHILS # (AUTO) 0.1 K/uL (0.00-0.22); EOSINOPHILS % (AUTO) 0.3 % (0.0-4.0); HEMOGLOBIN 17.3 g/dL (12.0-18.0); PLATELET COUNT (AUTO) 250 K/uL (140-450)
[2021-07-07 11:11] LABS: MEAN CORPUSCULAR HEMOGLOBIN 31 pg (27-31); MEAN CORPUSCULAR HGB CONC 33 g/dL (33-37)
[2021-07-07 11:14] LABS: HEMATOCRIT 52.9 % (36-52); MEAN CORPUSCULAR VOLUME 93.1 fL (80-94); RED BLOOD CELL COUNT(AUTO) 5.58 MIL/uL (4.20-6.10)
[2021-07-07 11:15] LABS: ALBUMIN 3.8 g/dL (3.4-5.0); ANION GAP 10.9 (8-16); ASPARTATE AMINOTRANSFERASE 24 U/L (15-37); BASOPHILS % (AUTO) 1.1 % (0.0-2.0); CARBON DIOXIDE 29.4 mmol/L (21-32); CHLORIDE 98 mmol/L (98-107); CREATININE 1.5 mg/dL (0.6-1.3); GLUCOSE 109 mg/dL (74-106); LYMPHOCYTES # (AUTO) 2.1 K/uL (2.0-11.5); LYMPHOCYTES % (AUTO) 17.3 % (20.5-51.1); MONOCYTES % (AUTO) 8.3 % (1.7-9.3); NEUTROPHILS # (AUTO) 8.7 K/uL (1.8-7.7); POTASSIUM 4.3 mmol/L (3.5-5.1); RED CELL DISTRIBUTION WIDTH 15.6 % (11.6-13.7); SODIUM SERUM 134 mmol/L (136-145); TOTAL BILIRUBIN 3.1 mg/dL (0.0-1.0); UREA NITROGEN, BLOOD 21 mg/dL (7-18)
[2021-07-07] MEDS ORDERED: NACL 0.9% 1,000 ML IV ONE (12:00)
--- NOTE | 2021-07-07 12:06 | NUR ---
PT TAKEN OFF NON-RB AND PLACED ONTO NC 6L AT THIS TIME. PT CURRENTLY SATING AT 100%
--- NOTE | 2021-07-07 12:19 | NUR ---
PT TITRATED DOWN TO 2L VIA NC AND SATING 100%
[2021-07-07] MEDS ORDERED: AZITHROMYCIN 250 MG TAB PO ONE (13:05)
--- NOTE | 2021-07-07 13:08 | NUR ---
LAB BEDSIDE WITH PATIENT
[2021-07-07] MEDS ORDERED: PRED20TA5 PO (14:23)
[2021-07-07] MEDS ORDERED: AZIT250T3 PO (14:23)
--- NOTE | 2021-07-07 14:23 | NUR ---
Patient appears to be resting comfortably in bed. Vital Signs within normal limits. Respirations even and unlabored.
--- NOTE | 2021-07-07 15:28 | NUR ---
SPOKE WITH [employer] AND PROVIDED WITH PATIENT UPDATE
--- NOTE | 2021-07-07 15:32 | NUR ---
FRANCISCO VELAZQUEZ COLLECTED AND WALKED OVER TO LAB
[2021-07-07] MEDS ORDERED: cefTRIAXone 1,000 MG VIAL ONE (15:41)
--- NOTE | 2021-07-07 17:02 | NUR ---
PT PROVIDED WITH DINNER TRAY BEDSIDE
--- NOTE | 2021-07-07 17:34 | NUR ---
Patient to be transferred to [facility]. Is being transferred due to HIGHER LEVEL OF CARE. Receiving facility has accepting physician and available space. ER physician has signed transfer form. Patient or responsible constitution party has agreed to transfer and signed form. Patient belongings inventoried and will be sent with patient. Copy of nursing notes, lab reports, EKG, Physicians Orders and X-rays to be sent with patient. Report called to MCKINLEY CRUZ at receiving facility. [facility] ambulance service has been called for transfer. ETA is 2030.
--- NOTE | 2021-07-07 17:37 | NUR ---
Patient appears to be resting comfortably in bed. Vital Signs within normal limits. Respirations even and unlabored.
--- NOTE | 2021-07-07 19:15 | NUR ---
SHIFT REPORT GIVEN BY MCKINLEY DA SILVA. RN TO ASSUME CARE OF PT.
--- NOTE | 2021-07-07 19:20 | NUR ---
PT LYING IN BED WITH EYES OPEN. DENIES ANY NEEDS AT THIS TIME. EQUAL RISE AND FALL OF CHEST, BREATHING WITHOUT DIFFICULTY. ALL VS ARE STABLE AT THIS TIME. WILL CONTINUE TO MONITOR PT.
--- NOTE | 2021-07-07 19:25 | NUR ---
Pt report given to MCKINLEY HUTSON. Transfer of care at this time.
--- NOTE | 2021-07-07 21:24 | NUR ---
PT AMBULATED TO BATHROOM FOR BOWEL MOVEMNT. PT INSTRUCTED TO USE CALL LIGHT IF THEY NEED ANY HELP
[2021-07-07 22:15] VITALS: BP 130/79
--- NOTE | 2021-07-07 22:15 | NUR ---
REPORT GIVEN TO EMS TO TRANSPORT [facility]. PT VS STABLE AT TIME OF TRANSPORT. NO ACUTE DISTRESS AT TIME OF TRANSPORT.
== END 2021-07-07 22:15 | disposition home or self-care (01) ==
LOC: MED 10:32
DX: J44.1 Chronic obstructive pulmonary disease with (acute) exacerbation (principal); Z20.822 Contact with and (suspected) exposure to COVID-19; I10 Essential (primary) hypertension; F17.200 Nicotine dependence, unspecified, uncomplicated; I25.2 Old myocardial infarction; Z79.899 Other long term (current) drug therapy; Z88.8 Allergy status to other drugs, medicaments and biological substances
CPT/HCPCS: 36415; 71045; 80053; 83880; 84484; 85025; 87426; 93005; 96365; 96366; 96367; 96375; 99285; J0696; J2930; J3475; J7030; Q0092

== ENCOUNTER 2022-03-15 12:56 | Emergency (ER) | payer MEDICARE ==
[~2022-03-15] VITALS: Ht 170.2 cm; Wt 64.4 kg
[~2022-03-15 12:56] MED LIST changes: +AZIT250T3 PO; +PRED20TA5 PO
[2022-03-15 12:58] VITALS: BP 184/95
[2022-03-15] MEDS ORDERED: DOXYCYCLINE 100 MG CAP PO SCH (13:35)
[2022-03-15] MEDS ORDERED: ALBUTEROL 0.083% 2.5 MG/3 ML NEBU INH ONE ×2 (13:35→15:05)
[2022-03-15] MEDS ORDERED: predniSONE 20 MG TAB PO ONE (13:35)
[2022-03-15] MEDS ORDERED: AMLO5TAB PO (13:39)
[2022-03-15] MEDS ORDERED: ASPI-1822 PO (13:39)
[2022-03-15] MEDS ORDERED: ATOR40TA PO (13:39)
[2022-03-15 13:47] LABS: BASOPHILS % (AUTO) 0.4 % (0.0-2.0); EOSINOPHILS # (AUTO) 0.1 K/uL (0-0.4); EOSINOPHILS % (AUTO) 1.7 % (0.0-4.0); HEMATOCRIT 51.9 % (36-52); LYMPHOCYTES # (AUTO) 1.5 K/uL (2.0-11.5); MEAN CORPUSCULAR HEMOGLOBIN 30 pg (27-31); MEAN CORPUSCULAR HGB CONC 33 g/dL (33-37); MEAN CORPUSCULAR VOLUME 91.2 fL (80-94); MONOCYTES # (AUTO) 0.8 K/uL (0.8-1.0); MONOCYTES % (AUTO) 9.5 % (1.7-9.3); NEUTROPHILS # (AUTO) 6.1 K/uL (1.8-7.7); NEUTROPHILS % (AUTO) 70.4 % (42.2-75.2); PLATELET COUNT (AUTO) 246 K/uL (140-450); RED BLOOD CELL COUNT(AUTO) 5.69 MIL/uL (4.20-6.10); RED CELL DISTRIBUTION WIDTH 15.8 % (11.6-13.7); WHITE BLOOD COUNT (AUTO) 8.6 K/uL (4.8-10.8)
[2022-03-15 14:12] LABS: ANION GAP 11.2 (8-16); ASPARTATE AMINOTRANSFERASE 27 U/L (15-37); CHLORIDE 104 mmol/L (98-107); CREATININE 1.3 mg/dL (0.6-1.3); GLUCOSE 74 mg/dL (74-106); POTASSIUM 4.2 mmol/L (3.5-5.1); SODIUM SERUM 142 mmol/L (136-145); TOTAL BILIRUBIN 1.1 mg/dL (0.0-1.0); UREA NITROGEN, BLOOD 28 mg/dL (7-18)
[2022-03-15] MEDS ORDERED: ALBUTEROL SULFATE/IPRATROPIU 3 ML SOL IH ONE ×4 (15:15→15:20)
[2022-03-15 18:54] VITALS: BP 155/80
== END 2022-03-15 19:10 | disposition short-term general hospital (02) ==
LOC: MED 12:56
DX: J44.1 Chronic obstructive pulmonary disease with (acute) exacerbation (principal); Z20.822 Contact with and (suspected) exposure to COVID-19; I10 Essential (primary) hypertension; I25.10 Atherosclerotic heart disease of native coronary artery without angina pectoris; Z79.84 Long term (current) use of oral hypoglycemic drugs
CPT/HCPCS: 36415; 71045; 80053; 82803; 83880; 84484; 85025; 87426; 87804; 93005; 94640; 94760; 99285; J7512; J7613; Q0092

== ENCOUNTER 2022-08-23 14:11 | Inpatient (IN) | payer MEDICARE ==
[~2022-08-23] VITALS: Ht 170.2 cm; Wt 55.8 kg
[~2022-08-23 14:11] MED LIST changes: +AMLO5TAB PO; -AMOX-999 PO; +ASPI-1822 PO; +ATOR40TA PO; -ATRN INH; -AZIT250T3 PO; -DOCU-299 PO; -FISH1CAP3 PO; -FOS70 PO; -HYDR-5080 PO; -LACT1.4C PO; -LISI20TA29 PO; -SIMV40TA1 PO
[2022-08-23 14:20] VITALS: BP 82/40
--- NOTE | 2022-08-23 14:40 | NUR ---
PT W/C ASSISTED TO BED 5
[2022-08-23] MEDS ORDERED: NACL 0.9% 1,000 ML IV ONE ×2 (14:45→16:15)
[2022-08-23] MEDS ORDERED: ASPIRIN 81 MG TAB.CHEW PO ONE (14:45)
[2022-08-23] MEDS ORDERED: fentaNYL citrate 0.05 MG/ML VIAL IVP ONE (14:45)
[2022-08-23] MEDS ORDERED: methylPREDNISolone SS 125 MG/2 ML VIAL IVP ONE (14:50)
[2022-08-23] MEDS ORDERED: NITROGLYCERIN 0.4 MG TAB SL ONE (14:50)
[2022-08-23] MEDS ORDERED: ALBUTEROL SULFATE/IPRATROPIU 3 ML SOL IH ONE (14:50)
[2022-08-23 15:12] LABS: BASOPHILS # (AUTO) 0.1 K/uL (0.00-0.22); BASOPHILS % (AUTO) 0.7 % (0.0-2.0); EOSINOPHILS # (AUTO) 0.1 K/uL (0-0.4); EOSINOPHILS % (AUTO) 0.7 % (0.0-4.0); HEMATOCRIT 44.6 % (36-52); HEMOGLOBIN 14.6 g/dL (12.0-18.0); LYMPHOCYTES # (AUTO) 0.8 K/uL (2.0-11.5); LYMPHOCYTES % (AUTO) 10.3 % (20.5-51.1); MEAN CORPUSCULAR HEMOGLOBIN 29 pg (27-31); MEAN CORPUSCULAR HGB CONC 33 g/dL (33-37); MEAN CORPUSCULAR VOLUME 88.1 fL (80-94); MONOCYTES # (AUTO) 0.6 K/uL (0.8-1.0); MONOCYTES % (AUTO) 7.4 % (1.7-9.3); NEUTROPHILS # (AUTO) 6.3 K/uL (1.8-7.7); NEUTROPHILS % (AUTO) 80.9 % (42.2-75.2); PLATELET COUNT (AUTO) 287 K/uL (140-450); RED BLOOD CELL COUNT(AUTO) 5.06 MIL/uL (4.20-6.10); RED CELL DISTRIBUTION WIDTH 15.9 % (11.6-13.7); WHITE BLOOD COUNT (AUTO) 7.9 K/uL (4.8-10.8)
[2022-08-23 15:23] LABS: PROTHROMBIN TIME 10.3 secs (10.8-13.4)
[2022-08-23 15:36] LABS: ALBUMIN 3.3 g/dL (3.4-5.0); ANION GAP 14.7 (8-16); ASPARTATE AMINOTRANSFERASE 24 U/L (15-37); CARBON DIOXIDE 29.5 mmol/L (21-32); CHLORIDE 100 mmol/L (98-107); CREATININE 1.3 mg/dL (0.6-1.3); FIBRINOGEN > 500 mg/dL (200-400); GLUCOSE 138 mg/dL (74-106); POTASSIUM 4.2 mmol/L (3.5-5.1); SODIUM SERUM 140 mmol/L (136-145); UREA NITROGEN, BLOOD 18 mg/dL (7-18)
--- NOTE | 2022-08-23 15:36 | NUR ---
Pt picked up by loss control technician. Pt left in stable condition on .
--- NOTE | 2022-08-23 15:38 | NUR ---
Pt bib ambulance for a complaint of sudden hip pain without trauma. Pt started complaining of chest pain when arriving to ED. saw pt before, as I was in another pt room. When I arrived to pt room he was speaking clearly. Pt still complaining of chest pain and hip pain, 04/30, chest radiating down to hip, sharp, nothing alleviates or makes the pain worse. Pt is a/o x 4, vss, breathing equal and unlabored, speech clear, has seen pt. RT has administered breathing tx. Pt on monitor.
[2022-08-23 15:44] LABS: D-DIMER 564 ng/ml (0-400)
--- NOTE | 2022-08-23 16:04 | NUR ---
Covid specimen labeled and sent to lab.
[2022-08-23] MEDS ORDERED: CEFEPIME 1,000 MG in DEXTROSE 5% 50 ML IV ONE (16:15)
--- NOTE | 2022-08-23 17:29 | NUR ---
Pt to ct in stable condition.
[2022-08-23] MEDS ORDERED: ACETAMINOPHEN 325 MG TAB PO PRN (18:30)
[2022-08-23] MEDS ORDERED: KCL 20 MEQ/WATER INJ PREMIX 200 ML IV PRN (18:30)
[2022-08-23] MEDS ORDERED: ONDANSETRON 4 MG/2 ML VIAL IVP PRN (18:30)
[2022-08-23] MEDS ORDERED: HYDROcodone/APAP 5/325 MG 1 TAB TAB PO PRN (18:30)
[2022-08-23] MEDS ORDERED: POTASSIUM CHLORIDE 10 MEQ TABER PO PRN (18:30)
[2022-08-23] MEDS: MORPHINE SULFATE 4 MG/ML SYR IVP PRN ×2 (19:10→23:53)
--- NOTE | 2022-08-23 19:49 | NUR ---
PT ASKED FOR DAUGHTER IN LAW TO BE CONTACTED AND GIVEN UPDATE. VOICEMAIL WAS LEFT
--- NOTE | 2022-08-23 19:54 | NUR ---
PT IS A&OX4 ADMIT TO TELE . PT HOLDING TILL BED ASSIG. RESP EVEN AND UNLABORED. ON 2L NC SPO3 97%. ADMISSON FOR PNA COPD EXCA. DENIES ANY PAIN AT THIS PAIN. PT AWARE OF ADMISSION. ON BEDSIDE MONITOR WITH HOB ELEVATED. BED AT LOWEST POSITION SIDE RAILS UP X2
--- NOTE | 2022-08-23 20:29 | NUR ---
Patient will be admitted to care of . Admited to TELE. Will go to [id number]. Belongings list completed. Report to CHICHO.
--- NOTE | 2022-08-23 20:30 | NUR ---
RECEIVED PATIENT [facility].ATIENT IS ALERT ORIENTED X4. PIV ON RIGHT AC AND RIGHT FOREARM INTACT AND PATENT. NO COMPLAIN OF PAIN AT THIS TIME
[2022-08-24] VITALS: BP 126/57
--- NOTE | 2022-08-24 02:00 | NUR ---
PATIENT SLEEPING COMFORTABLY AT THIS TIME, ALL SAFETY MEASURES IN PLACE,CALL LIGHT WITHIN EASY REACH, NO DISTRESS NOTED
[2022-08-24 04:00] VITALS: BP 128/73
[2022-08-24] MEDS: MORPHINE SULFATE 4 MG/ML SYR IVP PRN (04:37)
[2022-08-24 06:34] LABS: BASOPHILS % (AUTO) 0.1 % (0.0-2.0); HEMATOCRIT 40.6 % (36-52); HEMOGLOBIN 13.2 g/dL (12.0-18.0); LYMPHOCYTES # (AUTO) 0.4 K/uL (2.0-11.5); LYMPHOCYTES % (AUTO) 7.3 % (20.5-51.1); MEAN CORPUSCULAR HEMOGLOBIN 29 pg (27-31); MEAN CORPUSCULAR HGB CONC 33 g/dL (33-37); MEAN CORPUSCULAR VOLUME 87.6 fL (80-94); MONOCYTES # (AUTO) 0.1 K/uL (0.8-1.0); MONOCYTES % (AUTO) 2.2 % (1.7-9.3); NEUTROPHILS # (AUTO) 5.5 K/uL (1.8-7.7); NEUTROPHILS % (AUTO) 90.4 % (42.2-75.2); PLATELET COUNT (AUTO) 254 K/uL (140-450); RED BLOOD CELL COUNT(AUTO) 4.63 MIL/uL (4.20-6.10); WHITE BLOOD COUNT (AUTO) 6.1 K/uL (4.8-10.8)
[2022-08-24 06:46] LABS: ALBUMIN 2.9 g/dL (3.4-5.0); ANION GAP 9.6 (8-16); ASPARTATE AMINOTRANSFERASE 19 U/L (15-37); CARBON DIOXIDE 30.1 mmol/L (21-32); CHLORIDE 103 mmol/L (98-107); CREATININE 1.1 mg/dL (0.6-1.3); GLUCOSE 160 mg/dL (74-106); POTASSIUM 4.7 mmol/L (3.5-5.1); SODIUM SERUM 138 mmol/L (136-145); TOTAL BILIRUBIN 0.6 mg/dL (0.0-1.0); UREA NITROGEN, BLOOD 16 mg/dL (7-18)
--- NOTE | 2022-08-24 07:18 | NUR ---
ENDORSED PT TO AM NURSE FOR CONTINUITY OF CARE.PT IS STABLE
--- NOTE | 2022-08-24 07:30 | NUR ---
RECIEVED PATIENT FROM RADIO DISC JOCKEY NURSE,PATIENT IS STABLE,VERBALLY ACTIVE.ALL SAFETY MEASURS IN PLACE.NO COMPLAINS OF PAIN NOTED.CALL LIGHT WITHIN REACH .WILL CONTINUE TO MONITOR.
--- NOTE | 2022-08-24 07:34 | NUR ---
GOT REPORT FROM THE NIGHT NURSE, PT AWAKE DISCUSSED POC , NO SOB [id number]
[2022-08-24 08:00] VITALS: BP 110/62
[2022-08-24] MEDS ORDERED: ALBUTEROL 0.083% 2.5 MG/3 ML NEBU INH PRN (08:00)
[2022-08-24] MEDS: ASPIRIN 81 MG TAB.CHEW PO SCH (09:05)
[2022-08-24] MEDS: AZITHROMYCIN 500 MG in DEXTROSE 5% 250 ML IV SCH (09:11)
[2022-08-24] MEDS: MORPHINE SULFATE 2 MG/ML SYR IVP PRN ×2 (09:16→21:42)
--- NOTE | 2022-08-24 10:20 | NUR ---
PATIENT HAS BEEN SCREENED AND CATEGORIZED MODERATE NUTRITION RISK. PATIENT WILL BE SEEN WITHIN 3-5 DAYS OF ADMISSION. [address]
[2022-08-24 12:00] VITALS: BP 94/76
--- NOTE | 2022-08-24 15:42 | NUR ---
P.T. NOTES P.T. EVAL COMPLETED; REFER TO EVAL FOR DETAILS.
[2022-08-24 16:00] VITALS: BP 150/65
[2022-08-24] MEDS: ALBUTEROL SULFATE/IPRATROPIU 3 ML SOL IH PRN (18:17)
--- NOTE | 2022-08-24 18:17 | NUR ---
DISCHARGE PLANNING: PATIENT IS A 76-YEAR-OLD MALE ADMITTED ON 08/23/2022 AT [facility]/ER DUE TO SEPSIS, COPD EXACERBATION. JOB SETTER'S MET WITH PATIENT AT BEDSIDE TO DISCUSS AND GATHER PATIENT'S COLLATERAL INFORMATION. PATIENT WAS AWAKE AND ALERT DURING THE MEETING WITH SW; PATIENT WAS ABLE TO PROVIDE HIS OWN INFORMATION. PER PATIENT HE HAS GOOD FAMILY SUPPORT FROM HIS ADULT SON HIS , AND GRANDCHILDREN. PER PATIENT HE HAS NO ADVANCE DIRECTIVES IN PLACE AND DECLINED ALL FORMS PROVIDED BY NORMA. PER PATIENT HIS DAUGTHER IN LAW JULIANE BRAR IS HIS EMERGENCY CONTACT AND HIS MEDICAL DESICION MAKER. PER PATIENT HE LIVES WITH THEM AT THEIR HOME IN [facility]. PER PATIENT HE IS INDEPENDENT AND GETS AROUND IN THE HOME. PATIENT STATED THAT HE HAS A WALKER AND 02 HIS ONLY DME AT HOME. PATIENT ALSO REPORTED THAT HAS NO ISSUES GETTING OR TAKING HIS MEDICATIONS THAT HE PICKS UP IN [facility]ULAR [facility] FROM THE [facility]. SW EXPLAINED TO PATIENT THE IMPORTANCE OF MAKING A FOLLOW UP APPOINTMENT WITH HIS PCP EVANGELINA VELASCO. PER PATIENT HE HAS GOOD RAPPORT WITH HIS PCP AND STATED THAT HIS LAST VISIT WAS ON LAST WEEK. PER PATIENT HIS DAUGHTER IN LAW WILL BE MAKING A FOLLOW UP APPOINTMENT FOR PATIENT WHEN HE IS DISCHARGED. PER PATIENT SHE WANTS TO GO BACK HOME WITH HOME HEALTH WHEN HE IS READY AND STABLE TO DISCHARGE HOME WITH THE ASSISTANCE OF HIS DAUGHTER IN LAW WITH TRANSPORTATION BACK HOME. PATIENT IS OPEN FOR MD RECOMMENDATIONS WITH HOME HEALTH. SW THANKED HIM FOR THE INFORMATION AND ENDED THE MEETING. [facility]IRA WILL FOLLOW UP NEEDED.
--- NOTE | 2022-08-24 19:44 | NUR ---
RECEIVED ENDORSEMENT FROM WILMER SEN, PATIENT WAS STABLE DURING CHANGE OF SHIFT. NO NOTED RESPIRATORY DISTRESS AT THIS TIME. PATIENT IS AWARE AT TO WHY HE IS HERE IN THE HOSPITAL ALTHOUGH THE ORIGINALLY COMPLAINED OF HIP AND LEG PAIN. NO NOTED PAIN AT THIS TIME. IS ABLE TO MOVE AROUND THE ROOM WITHOUT ASSIST BUT WAS EDUCATED ON THE IMPORTANCE OF THE NEED FOR HIS OXYGEN AND WE WILL NOTIFY RT FOR A LONG OXYGEN EXTENSION. SIDE RAILS UP X 2 FOR COMFORT/ADJUSTMENT AND SAFETY. CALL LIGHT WITHIN REACH. [email or web address]
[2022-08-24 20:00] VITALS: BP 118/65
[2022-08-24] MEDS ORDERED: amLODIPine 5 MG TAB PO SCH (21:00)
--- NOTE | 2022-08-24 21:00 | NUR ---
PER MD, LASIX SHOULD BE HELD D/T BLOOD PRESSURE NOTED AT 104/62 HEART RATE NOTED 79. COVERING RN WAS NOTIFIED TO NOT GIVE AT THIS TIME. [email or web address]
[2022-08-24] MEDS: ATORVASTATIN 20 MG TAB PO SCH (21:22)
--- NOTE | 2022-08-24 21:30 | NUR ---
SPOKE WITH LIZ FROM [facility] AND WAS CHECKING FOR POSSIBLE DISCHARGE DATE. SHE WAS ADVISED THAT NO NOTED DISCHARGE PLANNING AT THIS TIME. PATIENT COMPLAINED OF PAIN AND COVERING RN (CARITO SOTO) WAS NOTIFIED. [email or web address]
[2022-08-25] VITALS: BP 132/69
--- NOTE | 2022-08-25 00:13 | NUR ---
PATIENT WAS ABLE TO URINATE 550ML DARK YELLOW. VITAL SIGNS WERE STABLE. KEPT CLEAN AND DRY. [email or web address]
[2022-08-25] MEDS: MORPHINE SULFATE 2 MG/ML SYR IVP PRN ×4 (02:18→21:57)
--- NOTE | 2022-08-25 02:27 | NUR ---
PATIENT REQUESTED FOR PAIN MANAGEMENT TO HIP AND LEG. COVERING RN WAS NOTIFIED OF THE IVP REQUEST. [email or web address]
--- NOTE | 2022-08-25 03:34 | NUR ---
DRYWALL STRIPPER GAVE A READING OF PATIENT HEART NOTED A 53. PATIENT WAS RECENTLY GIVEN MORPHINE FOR PAIN MANAGEMENT. NURSING WILL CONTINUE TO MONITOR FOR SAFETY. HEAD OF BED ELEVATED TO PROMOTE BETTER RESPIRATIONS AND INCREASE CARDIAC OUTPUT. [email or web address]
[2022-08-25 04:00] VITALS: BP 127/66
--- NOTE | 2022-08-25 06:24 | NUR ---
PATIENT REMAIN CLEAN AND DRY. PATIENT IS ASLEEP AT THIS TIME. [email or web address]
--- NOTE | 2022-08-25 07:01 | NUR ---
ENDORSED PATIENT TO JUAN CARLOS RN, PATIENT WAS STABLE DURING SHIFT REPORT. [email or web address]
[2022-08-25 07:02] LABS: BASOPHILS # (AUTO) 0.1 K/uL (0.00-0.22); BASOPHILS % (AUTO) 0.6 % (0.0-2.0); HEMATOCRIT 46.5 % (36-52); HEMOGLOBIN 14.9 g/dL (12.0-18.0); LYMPHOCYTES # (AUTO) 1.4 K/uL (2.0-11.5); MEAN CORPUSCULAR HEMOGLOBIN 28 pg (27-31); MEAN CORPUSCULAR HGB CONC 32 g/dL (33-37); MEAN CORPUSCULAR VOLUME 87.9 fL (80-94); MONOCYTES # (AUTO) 0.8 K/uL (0.8-1.0); MONOCYTES % (AUTO) 6.1 % (1.7-9.3); NEUTROPHILS # (AUTO) 11.3 K/uL (1.8-7.7); NEUTROPHILS % (AUTO) 83.3 % (42.2-75.2); PLATELET COUNT (AUTO) 275 K/uL (140-450); RED BLOOD CELL COUNT(AUTO) 5.29 MIL/uL (4.20-6.10); WHITE BLOOD COUNT (AUTO) 13.6 K/uL (4.8-10.8)
[2022-08-25 07:18] LABS: ASPARTATE AMINOTRANSFERASE 9 U/L (15-37); CARBON DIOXIDE 36.5 mmol/L (21-32); CHLORIDE 98 mmol/L (98-107); GLUCOSE 107 mg/dL (74-106); POTASSIUM 5.5 mmol/L (3.5-5.1); SODIUM SERUM 141 mmol/L (136-145); TOTAL BILIRUBIN 0.4 mg/dL (0.0-1.0); UREA NITROGEN, BLOOD 15 mg/dL (7-18)
--- NOTE | 2022-08-25 07:54 | NUR ---
08/25/2022 0755: RECEIVED PT FROM ALLISON BROWN. PT RESTING IN BED WITH EYES CLOSED. NO GUARDING OR GRIMACING NOTED. NO ACUTE DISTRESS NOTED AT THIS TIME. [email or web address].
[2022-08-25 08:00] VITALS: BP 151/70
[2022-08-25] MEDS ORDERED: SODIUM POLYSTYRENE 15 GM/60 ML UDBTL PO SCH (08:41)
[2022-08-25] MEDS: ASPIRIN 81 MG TAB.CHEW PO SCH (08:59)
[2022-08-25] MEDS: METOPROLOL SUCCINATE 50 MG TABER PO SCH (09:00)
[2022-08-25] MEDS: lisinopriL 5 MG TAB PO SCH (09:02)
[2022-08-25] MEDS: ATORVASTATIN 20 MG TAB PO SCH ×2 (09:04→20:18)
[2022-08-25] MEDS: AZITHROMYCIN 500 MG in DEXTROSE 5% 250 ML IV SCH (10:22)
[2022-08-25 12:00] VITALS: BP 154/66
[2022-08-25] MEDS: ALBUTEROL SULFATE/IPRATROPIU 3 ML SOL IH SCH ×2 (13:47→19:42)
[2022-08-25 16:00] VITALS: BP 146/68
--- NOTE | 2022-08-25 18:32 | NUR ---
08/25/2022 08:36 :TEXT TO DR RESTREPO FOR STAT 12 LEAD EKG DUE TO C/O CHEST PRESSURE AND K+ OF 5.5. KAYEXELATE 30GM ORDERED AND ADMINISTERED . [email or web address].
--- NOTE | 2022-08-25 18:38 | NUR ---
08/25/2022 8:11 : MORHINE 2MG GIVEN FOR CP 02/28 PER EMAR.[email or web address].
[2022-08-25 18:55] LABS: APPEARANCE,URINE CLEAR (CLEAR); BILIRUBIN,URINE NEGATIVE (NEGATIVE); BLOOD, URINE NEGATIVE (NEGATIVE); COLOR,URINE YELLOW (YELLOW); LEUKOCYTE ESTERASE ,URINE NEGATIVE (NEGATIVE); NITRITE, URINE NEGATIVE (NEGATIVE); UGLUCOSE NEGATIVE (NEGATIVE)
--- NOTE | 2022-08-25 19:07 | NUR ---
REPORT OFF TO TEE SEN. PT RESTING IN BED. NO C/O PAIN OR SOB. NO ACUTE DISTRESS NOTED AT THIS TIME. [email or web address].
--- NOTE | 2022-08-25 19:10 | NUR ---
RECEIVED PT IN BED, AWAKE, ALERT AND ORIENTED X 4. DENIES PAIN AT THIS TIME. DENIES SHORTNESS OF BREATH. SKIN WARM AND DRY TO TOUCH. BED IN THE LOWEST AND LOCKED POSITION FOR SAFETY, CALL LIGHT IN REACH.
--- NOTE | 2022-08-25 19:49 | NUR ---
PT WAS SEEN AND ASSESSED. PT WAS AWAKE AND ALERT IN BED. PT ON 2L NASAL CANNULAR WITH SPO2 OF 96%. NO RESPIRATORY DISTRESS NOTED AT THIS TIME. SCHEDULE HHN TX WAS GIVEN ORDERED AND PT TOLERATED WELL WITHOUT ANY ADVERSE REACTION. WILL CONTINUE TO MONITOR PT.
[2022-08-25 20:00] VITALS: BP 143/69
--- NOTE | 2022-08-25 20:19 | NUR ---
LIPITOR 40 MG GIVEN SCHEDULED., AM RN DOCUMENTED GIVEN AT 0904 BUT NO MEDICATION TAKEN OUT FROM PYXIS. CONSOLE OPERATOR AWARE.
[2022-08-26] VITALS (7 sets, daily range): BP systolic 107–145; BP diastolic 58–63
[2022-08-26] MEDS: ALBUTEROL SULFATE/IPRATROPIU 3 ML SOL IH SCH ×4 (00:12→19:00)
[2022-08-26] MEDS: MORPHINE SULFATE 2 MG/ML SYR IVP PRN ×5 (02:40→23:44)
--- NOTE | 2022-08-26 06:40 | NUR ---
PAIN MEDICATION GIVEN ORDERED. ALL NEEDS ATTENDED TO. SAFETY PRECAUTIONS MAINTAINED DURING TH SHIFT. CALL LIGHT IN REACH.
[2022-08-26 07:16] LABS: ALBUMIN 2.8 g/dL (3.4-5.0); ANION GAP 11.4 (8-16); ASPARTATE AMINOTRANSFERASE 17 U/L (15-37); BASOPHILS # (AUTO) 0.1 K/uL (0.00-0.22); BASOPHILS % (AUTO) 0.7 % (0.0-2.0); CARBON DIOXIDE 34.7 mmol/L (21-32); CHLORIDE 99 mmol/L (98-107); EOSINOPHILS % (AUTO) 0.5 % (0.0-4.0); GLUCOSE 100 mg/dL (74-106); HEMATOCRIT 40.3 % (36-52); LYMPHOCYTES # (AUTO) 1.2 K/uL (2.0-11.5); LYMPHOCYTES % (AUTO) 14.6 % (20.5-51.1); MAGNESIUM 1.7 mg/dL (1.8-2.4); MEAN CORPUSCULAR HEMOGLOBIN 28 pg (27-31); MEAN CORPUSCULAR HGB CONC 32 g/dL (33-37); MEAN CORPUSCULAR VOLUME 87.4 fL (80-94); MONOCYTES # (AUTO) 0.9 K/uL (0.8-1.0); MONOCYTES % (AUTO) 11.2 % (1.7-9.3); NEUTROPHILS # (AUTO) 5.9 K/uL (1.8-7.7); PLATELET COUNT (AUTO) 219 K/uL (140-450); POTASSIUM 4.1 mmol/L (3.5-5.1); RED BLOOD CELL COUNT(AUTO) 4.61 MIL/uL (4.20-6.10); RED CELL DISTRIBUTION WIDTH 16.3 % (11.6-13.7); SODIUM SERUM 141 mmol/L (136-145); TOTAL BILIRUBIN 0.5 mg/dL (0.0-1.0); UREA NITROGEN, BLOOD 13 mg/dL (7-18); WHITE BLOOD COUNT (AUTO) 8.2 K/uL (4.8-10.8)
[2022-08-26] MEDS: ASPIRIN 81 MG TAB.CHEW PO SCH (09:32)
[2022-08-26] MEDS: lisinopriL 5 MG TAB PO SCH (09:34)
[2022-08-26] MEDS: METOPROLOL SUCCINATE 50 MG TABER PO SCH (09:34)
[2022-08-26] MEDS ORDERED: MAG SULF 2000 MG/WATER PREMIX 50 ML IV SCH (10:00)
[2022-08-26] MEDS ORDERED: IBUPROFEN 600 MG TAB PO PRN (10:10)
[2022-08-26] MEDS ORDERED: IBUP-2213 PO (10:16)
[2022-08-26] MEDS ORDERED: ACET-9527 PO (10:25)
[2022-08-26] MEDS ORDERED: AZIT250T3 PO (10:25)
[2022-08-26] MEDS: AZITHROMYCIN 500 MG in DEXTROSE 5% 250 ML IV SCH (10:25)
--- NOTE | 2022-08-26 10:40 | NUR ---
PT REQUESTED BREATHING TX. PT IS IN NO RESP DISTRESS HE STATED HE WAS WORKED UP BY THE LEG PAIN AND NEEDED A TX. WILL CONTINUE TO MONITOR.
--- NOTE | 2022-08-26 10:41 | NUR ---
08/26/22 RD INITIAL ASSESSMENT COMPLETED PLEASE REFER TO NUTRITION ASSESSMENT UNDER CARE ACTIVITY FOR ESTIMATED NUTRITIONAL NEEDS. 1. CONTINUE CARDIAC DIET TOLERATED 2. WILL GIVE PRUNE JUICE ON LUNCH TRAY FOR CONSTIPATION TODAY 3. MONITOR PO INTAKE 4. MONITOR GI FUNCTION 5. RD TO FOLLOW-UP 3-5 DAYS, MODERATE RISK PATRICA BOSCH RD
[2022-08-26] MEDS: ALBUTEROL SULFATE/IPRATROPIU 3 ML SOL IH PRN (10:51)
--- NOTE | 2022-08-26 15:15 | NUR ---
RECEIVE A CALL FROM RADIOLOGIST, DR. BENJAMIN THAT PATIENT'S ABDOMEN/PELVIS CT INDICTED SMALL BOWEL OBSTRUCTION. DR. RESTREPO INFORMED AND DISCHARGE ORDER IS HOLDING AT THIS TIME. WILL CONTINUE TO MONITOR
[2022-08-26] MEDS: NACL 0.9% 1,000 ML IV SCH (15:36)
--- NOTE | 2022-08-26 19:24 | NUR ---
ENDORSE PATIENT IN STABLE CONDITION TO PM SHIFT NURSE WHILE NS INFUSING @70 ML/HR VIA L. FOREARM. CONSENT FOR L. FEMORAL HERNIA REPAIR W/ POSSIBLE LAPAROTOMY POSSIBLE BOWEL RESECTION SIGN
[2022-08-26] MEDS: ATORVASTATIN 20 MG TAB PO SCH (20:21)
--- NOTE | 2022-08-26 20:30 | NUR ---
SCHEDULED MEDICATIONS GIVEN. NO SIGNS OF DISTRESS NOTED, WILL CONTINUE TO MONITOR.
--- NOTE | 2022-08-26 22:04 | NUR ---
RECEIVED REPORT FROM DAY SHIFT NURSE FOR CONTINUITY OF CARE. PATIENT IS AWAKE AND STABLE, HARD OF HEARING. A&O X4. DENIES PAIN AT THIS TIME. CURRENTLY ON 2L NC WITH NO APPARENT S/SX OF ACUTE DISTRESS. RESPIRATIONS EVEN AND UNLABORED. IV SITE TO THE LOCATION OF OF THE LEFT FOREARM, GAUGE 20, INTACT AND PATENT. PATIENT IS AMBULATORY AND CONTINENT. SAFETY MEASURES IN PLACE, BED LOWERED TO LOWEST POINT, CALL LIGHT WITHIN REACH.
--- NOTE | 2022-08-26 23:00 | NUR ---
CONSULTED WITH ANESTHESIOLOGIST DR GOULD ABOUT PATIENTS SURGERY ON 08/27/22 AND BEING CLEARD BY THE RETAIL STORE CLERK. LEFT A VOICEMAIL TO DR GOULD STATING CARDIAC CLEARANCE. BMP AND CBC WAS ORDERED FOR 0600.
--- NOTE | 2022-08-26 23:15 | NUR ---
UNABLE TO ADMINISTER DUONEB MEDICATION TO PT AT 1900 DUE TO HIGHER CLINICAL PRIORITY
[2022-08-27] VITALS: BP 135/57
[2022-08-27] MEDS: ALBUTEROL SULFATE/IPRATROPIU 3 ML SOL IH SCH ×4 (02:30→19:42)
[2022-08-27] MEDS: MORPHINE SULFATE 2 MG/ML SYR IVP PRN (03:35)
[2022-08-27 04:00] VITALS: BP 105/60
[2022-08-27] MEDS: NACL 0.9% 1,000 ML IV SCH ×2 (05:53→20:01)
--- NOTE | 2022-08-27 06:03 | NUR ---
PATIENT ASLEEP AND STABLE. MORPHINE WAS ADMINISTERED PRN Q4H THROUGHOUT THE NIGHT FOR SEVERE PAIN. VITALS STABLE, NOTICEABLE CHEST RISE AND FALL.
[2022-08-27 06:36] LABS: BASOPHILS # (AUTO) 0.1 K/uL (0.00-0.22); BASOPHILS % (AUTO) 0.8 % (0.0-2.0); EOSINOPHILS # (AUTO) 0.1 K/uL (0-0.4); EOSINOPHILS % (AUTO) 1.1 % (0.0-4.0); HEMATOCRIT 39.7 % (36-52); HEMOGLOBIN 12.9 g/dL (12.0-18.0); LYMPHOCYTES # (AUTO) 0.9 K/uL (2.0-11.5); LYMPHOCYTES % (AUTO) 13.7 % (20.5-51.1); MEAN CORPUSCULAR HEMOGLOBIN 29 pg (27-31); MEAN CORPUSCULAR HGB CONC 33 g/dL (33-37); MEAN CORPUSCULAR VOLUME 87.9 fL (80-94); MONOCYTES # (AUTO) 0.8 K/uL (0.8-1.0); NEUTROPHILS # (AUTO) 5.1 K/uL (1.8-7.7); NEUTROPHILS % (AUTO) 73.4 % (42.2-75.2); PLATELET COUNT (AUTO) 191 K/uL (140-450); RED BLOOD CELL COUNT(AUTO) 4.52 MIL/uL (4.20-6.10); WHITE BLOOD COUNT (AUTO) 6.9 K/uL (4.8-10.8)
[2022-08-27 07:07] LABS: ALBUMIN 2.8 g/dL (3.4-5.0); ANION GAP 11.1 (8-16); ASPARTATE AMINOTRANSFERASE 5 U/L (15-37); CARBON DIOXIDE 35.5 mmol/L (21-32); CHLORIDE 100 mmol/L (98-107); CREATININE 0.9 mg/dL (0.6-1.3); GLUCOSE 91 mg/dL (74-106); POTASSIUM 4.6 mmol/L (3.5-5.1); SODIUM SERUM 142 mmol/L (136-145); TOTAL BILIRUBIN 1.1 mg/dL (0.0-1.0); UREA NITROGEN, BLOOD 13 mg/dL (7-18)
[2022-08-27 08:00] VITALS: BP 146/73
--- NOTE | 2022-08-27 08:59 | NUR ---
HELD HEPARIN FOR UPCOMING SURGERY
[2022-08-27] MEDS: ASPIRIN 81 MG TAB.CHEW PO SCH (09:00)
[2022-08-27] MEDS: lisinopriL 5 MG TAB PO SCH (09:27)
[2022-08-27] MEDS: METOPROLOL SUCCINATE 50 MG TABER PO SCH (09:27)
[2022-08-27] MEDS: AZITHROMYCIN 500 MG in DEXTROSE 5% 250 ML IV SCH (10:09)
[2022-08-27] MEDS ORDERED: BUPIVACAINE-MPF 0.25% 30 ML VIAL INJ ONE ×2 (10:57→12:03)
[2022-08-27] MEDS ORDERED: MIDAZOLAM 2 MG/2 ML VIAL ONE (11:18)
[2022-08-27] MEDS ORDERED: fentaNYL citrate 0.05 MG/ML VIAL ONE (11:54)
[2022-08-27] MEDS ORDERED: PROPOFOL 200 MG/20 ML VIAL IV ONE ×2 (12:19)
[2022-08-27] MEDS ORDERED: ePHEDrine 50 MG/ML VIAL ONE (12:45)
[2022-08-27] MEDS ORDERED: ONDANSETRON 4 MG/2 ML VIAL ONE (12:46)
[2022-08-27] MEDS ORDERED: HYDROcodone/APAP 5/325 MG 1 TAB TAB PO PRN (12:55)
[2022-08-27] MEDS: LACTATED RINGERS 1,000 ML IV SCH ×2 (13:00→23:00)
[2022-08-27] MEDS ORDERED: METOCLOPRAMIDE 10 MG/2 ML INJ VIAL IVP PRN (13:00)
[2022-08-27] MEDS ORDERED: hydrALAZINE 20 MG/ML VIAL IVP PRN (13:00)
--- NOTE | 2022-08-27 13:49 | NUR ---
RECEIVE PATIENT BACK FROM ER FOR L. FEMORAL HERNIA REPAIR PROCEDURE. PATIENT AWAKE, ABLE TO MAKE NEED KNOWN, NEW CINTRON 16 FR DRAINING, VERSED, ZOFRAN, AND FENTANYL GIVEN IN OR. NS INFUSING VIA L. FOREARM PIV SITE @70ML/HR. PATIENT IS [place] AND STATES WANT EATING. WILL CONTINUE TO MONITOR.
[2022-08-27 16:00] VITALS: BP 109/62
--- NOTE | 2022-08-27 19:13 | NUR ---
ENDORSE PATIENT IN STABLE CONDITION TO PM SHIFT NURSE WHILE NS INFUSING @70 ML/HR VIA L. FOREARM. L. FEMORAL HERNIA REPAIR PROCEDURE DONE; CINTRON [address]
[2022-08-27 20:00] VITALS: BP 159/69
[2022-08-27] MEDS: ATORVASTATIN 20 MG TAB PO SCH (20:45)
--- NOTE | 2022-08-27 21:30 | NUR ---
SCHEDULED MEDICATIONS GIVEN. PATIENT REPORTED PAIN OF 9 OUT OF 10. DILAUDID 1MG WAS ADMINISTERED. NO SIGNS OF DISTRESS NOTED, WILL CONTINUE TO MONITOR.
[2022-08-28] VITALS: BP 124/68
[2022-08-28] MEDS: HYDROmorphone 1 MG/ML AMP IVP PRN ×3 (00:01→21:21)
--- NOTE | 2022-08-28 00:30 | NUR ---
PATIENT FOUND IN BED ON ROOM AIR, SATTING AT 75%. O2 WAS RAISED FROM 2-4 AND THEN FROM 4-6 LITERS. RT WAS CONTACTED FOR BREATHING TREATMENT. NOW CURRENTLY SATTING AT 100%. O2 LOWERED BACK DOWN TO 2 LITERS. WILL CONTINUE TO MONITOR.
[2022-08-28] MEDS: ALBUTEROL SULFATE/IPRATROPIU 3 ML SOL IH SCH ×4 (01:24→20:07)
[2022-08-28 04:00] VITALS: BP 144/78
--- NOTE | 2022-08-28 07:23 | NUR ---
ENDORSED PATIENT TO DAY SHIFT NURSE IN STABLE CONDITION.
--- NOTE | 2022-08-28 07:30 | NUR ---
RECEIVED REPORT FROM NDT INSPECTOR NURSE FOR CONTINUITY OF CARE, POC DISCUSSED. PT ON 2L NC SATING AT 96%. ON TELE MONITOR. PT REPORTS 8/10 PAIN, WILL MEDICATE PER MD ORDER. ALL SAFETY MEASURES IN PLACE, CALL LIGHT WITHIN REACH. WILL CONTINUE TO MONITOR.
[2022-08-28 07:38] LABS: BASOPHILS % (AUTO) 0.5 % (0.0-2.0); EOSINOPHILS # (AUTO) 0.1 K/uL (0-0.4); EOSINOPHILS % (AUTO) 0.8 % (0.0-4.0); HEMATOCRIT 38.1 % (36-52); HEMOGLOBIN 12.3 g/dL (12.0-18.0); LYMPHOCYTES # (AUTO) 1.1 K/uL (2.0-11.5); LYMPHOCYTES % (AUTO) 12.4 % (20.5-51.1); MEAN CORPUSCULAR HEMOGLOBIN 29 pg (27-31); MEAN CORPUSCULAR HGB CONC 32 g/dL (33-37); MEAN CORPUSCULAR VOLUME 88.2 fL (80-94); NEUTROPHILS # (AUTO) 6.9 K/uL (1.8-7.7); NEUTROPHILS % (AUTO) 75.3 % (42.2-75.2); PLATELET COUNT (AUTO) 178 K/uL (140-450); RED BLOOD CELL COUNT(AUTO) 4.32 MIL/uL (4.20-6.10); RED CELL DISTRIBUTION WIDTH 16.2 % (11.6-13.7); WHITE BLOOD COUNT (AUTO) 9.1 K/uL (4.8-10.8)
[2022-08-28 07:54] LABS: ALBUMIN 2.5 g/dL (3.4-5.0); ANION GAP 7.9 (8-16); ASPARTATE AMINOTRANSFERASE 12 U/L (15-37); CARBON DIOXIDE 34.8 mmol/L (21-32); CHLORIDE 101 mmol/L (98-107); CREATININE 0.9 mg/dL (0.6-1.3); GLUCOSE 102 mg/dL (74-106); MAGNESIUM 1.7 mg/dL (1.8-2.4); POTASSIUM 3.7 mmol/L (3.5-5.1); SODIUM SERUM 140 mmol/L (136-145); TOTAL BILIRUBIN 0.9 mg/dL (0.0-1.0); UREA NITROGEN, BLOOD 11 mg/dL (7-18)
[2022-08-28 08:00] VITALS: BP 137/74
--- NOTE | 2022-08-28 08:02 | NUR ---
PRN PAIN MEDICATION ADMINISTERED PER MD ORDER, PT RATES PAIN 8/10 IN ABD. VSS. IV PATENT AND INTACT. ALL GELACIO MEDICATION ADMINISTERED PER MD ORDER. ALL QUESTIONS ANSWERED. FULL ASSESSMENT COMPLETED. RT AT BEDSIDE, BREATHING TREATMENT BEING GIVE. RT STATES PT DOES NOT NEED HIS NC AFTER BREATHING TREATMENT BECAUSE HE IS SATING IN THE UPPER 90S. ON PULSE OX. WILL CONTINUE TO MONITOR.
[2022-08-28] MEDS: ASPIRIN 81 MG TAB.CHEW PO SCH (08:08)
[2022-08-28] MEDS: lisinopriL 5 MG TAB PO SCH (08:09)
[2022-08-28] MEDS: LACTATED RINGERS 1,000 ML IV SCH (08:10)
[2022-08-28] MEDS: NACL 0.9% 1,000 ML IV SCH ×2 (08:10→22:41)
[2022-08-28] MEDS: METOPROLOL SUCCINATE 50 MG TABER PO SCH (08:10)
--- NOTE | 2022-08-28 08:15 | NUR ---
RN AWARE PT IS ON ROOM AIR SATING 96% NO DISTRESS NOTED. WILL CONTINUE TO MONITOR.
[2022-08-28] MEDS: AZITHROMYCIN 500 MG in DEXTROSE 5% 250 ML IV SCH (08:21)
--- NOTE | 2022-08-28 08:34 | NUR ---
PT O2 DROPPED TO 78%, PLACED BACK ON NC AT 6L. O2 INCREASED TO 94%, O2 DECREASED BACK TO BASELINE OF 3. PT DENIES SOB. ALL SAFETY MEASURES IN PLACE, CALL LIGHT WITHIN REACH. WILL CONTINUE TO MONITOR.
--- NOTE | 2022-08-28 08:40 | NUR ---
RN MADE ME AWARE PT DESATED TO THE 70S. SHE PLACED PT BACK ON 3L NC . HE IS NOW SATING IN THE 90S. WILL CONTINUE TO MONITOR.
--- NOTE | 2022-08-28 11:47 | NUR ---
ROUNDED ON PT, PT IS SATING AT 94% ON 3L NC. REPORTS ALL NEEDS MET AT THIS TIME. ASKING WHEN THE MD WILL COME IN. ALL SAFETY MEASURES IN PLACE, CALL LIGHT WITHIN REACH. WILL CONTINUE TO MONITOR.
[2022-08-28 12:00] VITALS: BP 127/46
--- NOTE | 2022-08-28 14:20 | NUR ---
LEFT FOREARM IV INFILTRATED, ICE AND ELEVATION PROVIDED. IV CATH REMOVED, INTACT. NEW IV STARTED TO RIGHT FOREARM 20G, 1 ATTEMPT. FLASH BACK AND PATENT. DRESSING APPLIED. PT TOLERATED. RECONNECTED TO IV FLUIDS. O2 SAT AT 98%. ALL NEEDS ARE MET, ALL SAFETY MEASURES IN PLACE, CALL LIGHT WITHIN REACH. WILL CONTINUE TO MONITOR.
--- NOTE | 2022-08-28 14:56 | NUR ---
ROUNDED ON PT, PT REPORTS ALL NEEDS MET. ALL SAFETY MEASURES IN PLACE. CALL LIGHT WITHIN REACH. WILL CONTINUE TO MONITOR.
[2022-08-28 16:00] VITALS: BP 120/58
--- NOTE | 2022-08-28 17:23 | NUR ---
PT FOUND IN TRIPOD POSITION WITH VISIBLE S/S OF SOB, USE OF ACCESSORY MUSCLES. RT CALLED FOR PRN BREATHING TREATMENT. PT SATING AT 94% ON 2LNC.
[2022-08-28] MEDS: ALBUTEROL SULFATE/IPRATROPIU 3 ML SOL IH PRN (17:56)
--- NOTE | 2022-08-28 18:29 | NUR ---
PT RESTING IN BED, CALL LIGHT WITHIN REACH. SATING AT 97%. ALL SAFETY MEASURES IN PLACE, PT CONFIRMS HE WILL CALL IF HE DEVELOPS SOB AGAIN.
--- NOTE | 2022-08-28 19:08 | NUR ---
RECEIVED REPORT FROM DAY SHIFT NURSE SHARDA FOR CONTINUITY OF CARE. PT AWAKE IN BED. RESPIRATIONS EVEN AND UNLABORED ON 3L NC SATTING AT 99%. ON GIFT SHOP MANAGER. CINTRON CATHETER DRAINING TO GRAVITY. NOTED INCISION SITE ON LOWER ABDOMEN, ESTRELLITA WITH NO DRAINAGE. INITIAL ASSESSMENT DONE. POC DISCUSSED WITH THE PT AND RN JYOTI. CALL LIGHT WITHIN REACH. SAFETY PRECAUTIONS IN PLACE.
[2022-08-28 20:00] VITALS: BP 142/66
--- NOTE | 2022-08-28 20:00 | NUR ---
Patient's Plan of Care was discussed and reviewed with STEPHANIE PETERSEN
[2022-08-28] MEDS: ATORVASTATIN 20 MG TAB PO SCH (20:39)
--- NOTE | 2022-08-28 20:39 | NUR ---
ADMINISTERED DUE MEDS. PT TOLERATED WELL. PT COMPLAINING OF LEG PAIN 02/28. MCKINLEY MONTES MADE AWARE.
--- NOTE | 2022-08-28 21:27 | NUR ---
ADMINISTERED DILUADID TO PATIENT FOR 9/10 LEFT LEG PAIN. MEDICATION WAS ADMINISTERED SUCCESSFULLY WITHOUT ANY ISSUES. INFORMED REO ASSET MANAGER JORGE L OF MEDICATION ADMINISTRATION.
[2022-08-29] VITALS: BP 133/82
[2022-08-29] MEDS: NACL 0.9% 1,000 ML IV SCH ×2 (00:37→15:25)
[2022-08-29] MEDS: ALBUTEROL SULFATE/IPRATROPIU 3 ML SOL IH SCH ×4 (01:21→19:19)
--- NOTE | 2022-08-29 03:59 | NUR ---
V/S TAKEN. DRAINED 250CC OF URINE FROM FC. DID MORNING CARE. PT TOLERATED WELL. PT REMAINED CLEAN AND DRY. PT SATTING AT 99% ON 3L NC. NO COMPLAINTS OF SOB. DENIES PAIN.
[2022-08-29 04:00] VITALS: BP 126/56
[2022-08-29] MEDS: HYDROmorphone 1 MG/ML AMP IVP PRN ×2 (07:03→22:03)
--- NOTE | 2022-08-29 07:07 | NUR ---
MEDICATED PATIENT WITH DILAUDID FOR 8/10 PAIN. MEDICATION ADMINISTERED SUCCESSFULLY. INFORMED DEHYDRATOR JORGE L OF ADMINISTRATION.
--- NOTE | 2022-08-29 07:17 | NUR ---
GAVE BEDSIDE REPORT TO DAY SHIFT NURSE MOTLEY FOR CONTINUITY OF CARE. ALL NEEDS MET THROUGHOUT SHIFT. PT IS STABLE.
--- NOTE | 2022-08-29 07:18 | NUR ---
RECEIVED REPORT FROM GYNECOLOGY TEACHER NURSE FOR CONTINUITY OF CARE. PATIENT SITTING DOWN IN BED, AWAKE, ALERT, NO DISTRESS NOTED. IV SITE INTACT, PATENT, AND INFUSING IVF PER MD ORDERS. DENIES ANY PAIN. CINTRON CATHETER IN PLACE. REVIEWED PLAN OF CARE WITH PATIENT. VERBALIZED UNDERSTANDING. SAFETY MEASURES IN PLACE, CALL LIGHT WITHIN REACH. WILL CONTINUE TO MONITOR.
[2022-08-29 08:00] VITALS: BP 119/59
[2022-08-29] MEDS: ASPIRIN 81 MG TAB.CHEW PO SCH (08:27)
[2022-08-29] MEDS: lisinopriL 5 MG TAB PO SCH (08:27)
[2022-08-29] MEDS: METOPROLOL SUCCINATE 50 MG TABER PO SCH (08:29)
--- NOTE | 2022-08-29 08:40 | NUR ---
SCHEDULED MEDICATIONS DUE GIVEN. WILL CONTINUE TO MONITOR.
[2022-08-29] MEDS: PANTOPRAZOLE 40 MG TABEC PO SCH (11:21)
--- NOTE | 2022-08-29 11:21 | NUR ---
SCHEDULED MEDICATIONS DUE GIVEN. WILL CONTINUE TO MONITOR.
[2022-08-29 12:00] VITALS: BP 148/86
[2022-08-29] MEDS ORDERED: METOCLOPRAMIDE 10 MG/2 ML INJ VIAL IVP PRN (15:10)
[2022-08-29 16:00] VITALS: BP 140/65
--- NOTE | 2022-08-29 16:19 | NUR ---
DC PLANNING: RECEIVED A CALL FROM [facility] PERENNIAL HOUSE MANAGER STATED HOME HEALTH ARRANGED WITH [facility] # [phone] KURTZ PATIENT IS VOMITING AND NOT STABLE FOR DISCHARGE. SAADIA ORDERED CM TO FOLLOW
--- NOTE | 2022-08-29 18:09 | NUR ---
REGLAN PRN GIVEN AT THIS TIME. WILL CONTINUE TO MONITOR.
--- NOTE | 2022-08-29 19:30 | NUR ---
GAVE REPORT TO INSPECTOR GLASS OR MIRROR NURSE FOR CONTINUITY OF CARE. PATIENT IN STABLE CONDITION.
[2022-08-29] MEDS: ATORVASTATIN 20 MG TAB PO SCH (21:55)
--- NOTE | 2022-08-29 22:03 | NUR ---
PT COMPLAINTS OF SEVERE ABDOMINAL PAIN 02/28, PAIN MEDICATION DILAUDID ADMINISTERED ORDER.
--- NOTE | 2022-08-29 23:03 | NUR ---
PT IS SLEEPING, NO FACIAL GRIMACING. NO SOB OR DISTRESS.
[2022-08-30] MEDS: ALBUTEROL SULFATE/IPRATROPIU 3 ML SOL IH SCH ×4 (01:00→19:38)
[2022-08-30 03:09] VITALS: BP 0/0
[2022-08-30] MEDS: NACL 0.9% 1,000 ML IV SCH ×2 (05:13→19:31)
--- NOTE | 2022-08-30 07:15 | NUR ---
RECEIVED REPORT FROM NIGHT NURSE TERENCE FOR CONTINUITY OF CARE. INITIAL ASSESSMENT DONE. IVF INFUSING WELL. F/C INTACT DRAINING YELLOW URINE. REMAINS STABLE. CALL LIGHT KEPT WITHIN REACH. WILL CONTINUE TO MONITOR.
--- NOTE | 2022-08-30 07:30 | NUR ---
PT IS ON STABLE CONDITION. ALL SAFETY MEASURES ARE IN PLACE. ENDORSED TO DAY SHIFT NURSE.
[2022-08-30 08:00] VITALS: BP 141/62
[2022-08-30] MEDS: METOPROLOL SUCCINATE 50 MG TABER PO SCH (08:58)
--- NOTE | 2022-08-30 08:58 | NUR ---
SCHEDULED MEDICATIONS GIVEN. TOLERATING WELL.
[2022-08-30] MEDS: PANTOPRAZOLE 40 MG TABEC PO SCH (08:59)
[2022-08-30] MEDS: ASPIRIN 81 MG TAB.CHEW PO SCH (08:59)
[2022-08-30] MEDS: lisinopriL 5 MG TAB PO SCH (08:59)
[2022-08-30 11:02] LABS: BASOPHILS % (AUTO) 0.5 % (0.0-2.0); EOSINOPHILS # (AUTO) 0.2 K/uL (0-0.4); EOSINOPHILS % (AUTO) 2.1 % (0.0-4.0); HEMOGLOBIN 11.7 g/dL (12.0-18.0); LYMPHOCYTES # (AUTO) 0.6 K/uL (2.0-11.5); LYMPHOCYTES % (AUTO) 8.7 % (20.5-51.1); MEAN CORPUSCULAR HEMOGLOBIN 29 pg (27-31); MEAN CORPUSCULAR HGB CONC 33 g/dL (33-37); MEAN CORPUSCULAR VOLUME 88.2 fL (80-94); MONOCYTES # (AUTO) 0.7 K/uL (0.8-1.0); MONOCYTES % (AUTO) 9.2 % (1.7-9.3); NEUTROPHILS # (AUTO) 5.9 K/uL (1.8-7.7); NEUTROPHILS % (AUTO) 79.5 % (42.2-75.2); PLATELET COUNT (AUTO) 182 K/uL (140-450); RED BLOOD CELL COUNT(AUTO) 4.09 MIL/uL (4.20-6.10); RED CELL DISTRIBUTION WIDTH 16.2 % (11.6-13.7); WHITE BLOOD COUNT (AUTO) 7.4 K/uL (4.8-10.8)
[2022-08-30 11:40] LABS: ANION GAP 7.8 (8-16); CHLORIDE 105 mmol/L (98-107); GLUCOSE 98 mg/dL (74-106); POTASSIUM 3.8 mmol/L (3.5-5.1); SODIUM SERUM 141 mmol/L (136-145); UREA NITROGEN, BLOOD 14 mg/dL (7-18)
--- NOTE | 2022-08-30 11:55 | NUR ---
SEEN BY DR. SNEED RECOMMENDS NPO EXCEPT MEDS. DR. KURTZ NOTIFIED AWAITING FOR RESPONSE.
--- NOTE | 2022-08-30 15:37 | NUR ---
08/30/22 RD FOLLOW UP COMPLETED PLEASE REFER TO NUTRITION ASSESSMENT UNDER CARE ACTIVITY FOR ESTIMATED NUTRITIONAL NEEDS. 1. RECOMMEND CONTINUE FULL LIQUID DIET TOLERATED 2. RECOMMEND ENSURE 1/DAY TO HELP INCREASE PO INTAKE -PROVIDES 350 KCAL AND 20 GM PROTEIN DAILY 3. RECOMMEND CARDIAC DIET WHEN/IF MEDICALLY APPROPRIATE 4. RD TO FOLLOW-UP 7 DAYS, LOW RISK REVIEWED BY LUIS GOULD RD
[2022-08-30 16:00] VITALS: BP 127/88
--- NOTE | 2022-08-30 17:00 | NUR ---
RECEIVED NEW ORDER FROM DR. BRADEN, NPO EXCEPT MEDS. NOTED AND CARRIED OUT.
--- NOTE | 2022-08-30 17:50 | NUR ---
RECEIVED NEW ORDER FROM DR. BRADEN, COLACE 100 MG BID FOR CONSTIPATION. NOTED AND CARRIED OUT.
--- NOTE | 2022-08-30 19:15 | NUR ---
BEDSIDE REPORT GIVEN TO SHAUNA FOR CONTINUITY OF CARE. REMAINS STABLE.
--- NOTE | 2022-08-30 19:16 | NUR ---
PATIENT ENDORSEMENT WAS GIVEN BY SILVANA BROWN, PATIENT WAS STABLE DURING SHIFT REPORT. PATIENT WAS ALERT AND ORIENTED. KEPT CLEAN AND DRY. PATIENT IS AWARE OF USING CALL LIGHT TO HAVE NEEDS MED. NO NOTED S/S OF PAIN DISCOMFORT AT THIS TIME. NO NOTED SS OF RESPIRATORY DISTRESS. PATIENT WAS ON ROOM AIR NOT ON N/C AT 2 LITERS. BED AT LOWEST LEVEL, SIDE RAILS UP X 2 FOR SAFETY AND ADJUSTMENTS. CALL LIGHT WITHIN REACH. PATIENT IS [place] AND NURSING WILL FREQUENT THE ROOM FOR ANTICIPATED NEEDS. [email or web address]
--- NOTE | 2022-08-30 20:00 | NUR ---
Patient's Plan of Care was discussed and reviewed with RIKKI BROWN:
--- NOTE | 2022-08-30 20:25 | NUR ---
LAURA FROM [facility] TOOK PATIENT FOR DISCHARGE IN [facility]. PATIENT WAS WHEELED OUT VIA WHEELCHAIR. NO S/S OF PAIN/DISCOMFORT. NO S/S OF RESPIRATORY DISCOMFORT. PATIENT EDUCATION WAS EXPLAINED TO PATIENT AND LAURA. PATIENT LEFT IN PERSONAL BELONGINGS. [email or web address]
[2022-08-30] MEDS: ATORVASTATIN 20 MG TAB PO SCH (21:15)
[2022-08-30] MEDS: DOCUSATE SODIUM 100 MG GELCAP PO SCH (21:15)
--- NOTE | 2022-08-31 00:50 | NUR ---
PATIENT IN BED ASLEEP. CALL LIGHT WITHIN REACH. BED AT LOWEST LEVEL. [email or web address]
[2022-08-31] MEDS: ALBUTEROL SULFATE/IPRATROPIU 3 ML SOL IH SCH ×4 (00:56→20:00)
--- NOTE | 2022-08-31 03:15 | NUR ---
PATIENT IN BED NO COMPLAINTS OF PAIN. CINTRON STILL REMAINS, WILL ENDORSE TO AM SHIFT TO ASK THE SURGEON TO DISCONTINUE THE CINTRON CATH. [email or web address]
[2022-08-31 04:00] VITALS: BP 145/59
--- NOTE | 2022-08-31 07:07 | NUR ---
DR SNEED CALLED IN FORE PATIENT TO HAVE AN UPDATE. PATIENT IS PASSING GAS BUT NO BOWEL MOVEMENT. PATIENT MAY RESUME TO CLEAR LIQUID DIET. WILL ENDORSE TO AM SHIFT. [email or web address]
--- NOTE | 2022-08-31 07:41 | NUR ---
ENDORSED PATIENT CARE TO ALLIE RN, PATIENT WAS STABLE DURING SHIFT REPORT. [email or web address]
[2022-08-31] MEDS: PANTOPRAZOLE 40 MG TABEC PO SCH (09:00)
[2022-08-31] MEDS: DOCUSATE SODIUM 100 MG GELCAP PO SCH ×2 (10:11→20:10)
[2022-08-31] MEDS: lisinopriL 5 MG TAB PO SCH (10:12)
[2022-08-31] MEDS: METOPROLOL SUCCINATE 50 MG TABER PO SCH (10:12)
[2022-08-31] MEDS: ASPIRIN 81 MG TAB.CHEW PO SCH (10:12)
[2022-08-31] MEDS: NACL 0.9% 1,000 ML IV SCH (10:13)
[2022-08-31] MEDS: HYDROmorphone 1 MG/ML AMP IVP PRN (13:56)
--- NOTE | 2022-08-31 14:00 | NUR ---
PATIENT C/O CHEST PAIN MEDICATED WITH DILAUDID WITH RELIEF.STAT EKG ORDERED. PLACED ON LABEL PINKER PER MD ORDER. SR WITH PVC AND WITH TRIGEMINY DR. KURTZ MADE AWARE.
--- NOTE | 2022-08-31 15:13 | NUR ---
PHYSICAL THERAPY CO-SIGN The Physical Therapy Progress Notes documented by Paraplanner have been reviewed. Reviewed/Co-Signed by: Tamica Robles Documentation Done by: OSWALD BARRY PTA Addendum: 08/31/22 at 1513 by Tamica Robles PT Amended: Links added.
--- NOTE | 2022-08-31 17:50 | NUR ---
DISCONTINUE CINTRON CATHETER. TOLERATED WELL. WILL MONITOR FOR ANY SIGNS OF URINARY RETENTION.
--- NOTE | 2022-08-31 19:15 | NUR ---
RECEIVED PT IN BED, AWAKE, ALERT AND ORIENTED X 4. DENIES PAIN. DENIES SHORTNESS OF BREATH. SKIN WARM AND DRY TO TOUCH. SAFETY PRECAUTION IN PLACE, CALL LIGHT IN REACH.
[2022-08-31 20:00] VITALS: BP 133/68
--- NOTE | 2022-08-31 20:00 | NUR ---
PT ABLE TO VOID WITHOUT DIFFICULTY USING THE URINAL, EMPTIED 150 ML OF YELLOW URINE.
[2022-08-31] MEDS: ATORVASTATIN 20 MG TAB PO SCH (20:10)
--- NOTE | 2022-08-31 22:21 | NUR ---
PER PT HE HAD A BOWEL MOVEMENT TODAY AROUND 1 PM.
[2022-09-01] VITALS: BP 123/53
[2022-09-01] MEDS: NACL 0.9% 1,000 ML IV SCH ×2 (00:07→08:36)
[2022-09-01] MEDS: ALBUTEROL SULFATE/IPRATROPIU 3 ML SOL IH SCH ×3 (01:20→12:55)
--- NOTE | 2022-09-01 03:32 | NUR ---
RN CALLED STATING PATIENT WAS REQUESTING BREATHING TREATMENT. ASSESSED PATIENT. PATIENT SLEEPING, NO SOB NOTED. NO TREATMENT GIVEN AT THIS TIME.
[2022-09-01 04:00] VITALS: BP 147/70
[2022-09-01] MEDS: ALBUTEROL SULFATE/IPRATROPIU 3 ML SOL IH PRN ×2 (04:43→04:45)
--- NOTE | 2022-09-01 06:22 | NUR ---
PATIENT IS ASLEEP. NO DISTRESS NOTED. ALL NEEDS ATTENDED TO. SAFETY PRECAUTIONS MAINTAINED DURING THE SHIFT, CALL LIGHT REMAINS WITHIN REACH.
--- NOTE | 2022-09-01 07:10 | NUR ---
RECEIVED REPORT FROM LORENA NURSE TEE FOR CONTINUITY OF CARE. INITIAL ASSESSMENT DONE. IVF INFUSING WELL. CALL LIGHT KEPT WITHIN REACH. WILL CONTINUE TO MONITOR.
[2022-09-01 08:00] VITALS: BP 158/80
--- NOTE | 2022-09-01 08:00 | NUR ---
Patient's Plan of Care was discussed and reviewed with BRAND MGR: SILVANA ODELL
--- NOTE | 2022-09-01 08:20 | NUR ---
RECEIVED CALLED FROM DR. SNEED, SOFT DIET FOR LUNCH, IF TOLERATED DIET, PT MAY DISCHARGE. NOTED AND CARRIED OUT. PT MADE AWARE.
[2022-09-01] MEDS: PANTOPRAZOLE 40 MG TABEC PO SCH (08:36)
[2022-09-01] MEDS: DOCUSATE SODIUM 100 MG GELCAP PO SCH (08:36)
[2022-09-01] MEDS: ASPIRIN 81 MG TAB.CHEW PO SCH (08:37)
[2022-09-01] MEDS: lisinopriL 5 MG TAB PO SCH (08:37)
--- NOTE | 2022-09-01 08:37 | NUR ---
SCHEDULED MEDICATIONS GIVEN. TOLERATING WELL.
[2022-09-01] MEDS: METOPROLOL SUCCINATE 50 MG TABER PO SCH (08:38)
--- NOTE | 2022-09-01 08:55 | NUR ---
PT NOTED 1X BOWEL MOVEMENT.
[2022-09-01 12:00] VITALS: BP 157/75
--- NOTE | 2022-09-01 12:15 | NUR ---
RECEIVED CALLED FROM [facility] [employer], SPOKE TO LIZ, ALL QUESTIONS ANSWERED. PER LIZ SHE NEEDS UPDATE ONCE PT IS CLEARED FOR DISCHARGE. PHONE [phone].
--- NOTE | 2022-09-01 14:52 | NUR ---
PT TOLERATED SOFT DIET, CONSUMED 50%. NO N/V NOTED. NO C/O PAIN OR DISCOMFORT. BM 4X NORMAL STOOL. DR SNEED NOTIFIED, AWAITING FOR RESPONSE.
--- NOTE | 2022-09-01 14:56 | NUR ---
RECEIVED CALLED BACK FROM DR. SNEED, PT IS CLEARED FOR DISCHARGE F/U 3-[address] BRADEN, NOTIFIED AWAITING FOR RESPONSE.
--- NOTE | 2022-09-01 15:47 | NUR ---
SEEN BY DR BRADEN, PT IS CLEARED TO BE DISCHARGED. CALLED DAUGHTER JULIANE, APPRECIATED CALLED AND STATED SHE WILL PICK HIM UP AT 1700. CALLED SOFTWARE CLERK ABY ABERNATHY, VOICEMAIL LEFT MESSAGE.
[2022-09-01 16:00] VITALS: BP 153/78
[2022-09-01 16:19] VITALS: BP 157/75
--- NOTE | 2022-09-01 17:15 | NUR ---
PT LEFT HOSPITAL, DISCHARGE TO HOME WITH HOME HEALTH TO FOLLOW. TRANSPORTED BY PRIVATE VEHICLE, ACCOMPANIED BY HER DAUGHTER. ALERT AND ORIENTED X 4. ON CONT. O2 @ 2L/MIN. ID BAND, IV REMOVED. WITH SKIN CONDITION FOLLOWS, SKIN DISCOLORATION TO BUE, SKIN DISCOLORATION TO BACK. PERSONAL BELONGINGS TAKEN. REMAINS STABLE.
== END 2022-09-01 17:49 | disposition home or self-care (01) | DRG 853 ==
LOC: MED 14:11 → MTU 18:53
PROVIDERS: ADMIT Internal Medicine; ATTEND Internal Medicine
PROC: 0YU80JZ Supplement Left Femoral Region with Synthetic Substitute, Open Approach (ICD-10-PCS; principal; 2022-08-27 10:00)
DX: A41.9 Sepsis, unspecified organism (principal); J18.9 Pneumonia, unspecified organism; K41.30 Unilateral femoral hernia, with obstruction, without gangrene, not specified as recurrent; J96.11 Chronic respiratory failure with hypoxia; C34.00 Malignant neoplasm of unspecified main bronchus; I50.22 Chronic systolic (congestive) heart failure; I25.5 Ischemic cardiomyopathy; I25.10 Atherosclerotic heart disease of native coronary artery without angina pectoris; J44.9 Chronic obstructive pulmonary disease, unspecified; I10 Essential (primary) hypertension; M19.90 Unspecified osteoarthritis, unspecified site; D72.829 Elevated white blood cell count, unspecified; E87.5 Hyperkalemia; Z20.822 Contact with and (suspected) exposure to COVID-19; E78.5 Hyperlipidemia, unspecified; Z88.8 Allergy status to other drugs, medicaments and biological substances; Z79.82 Long term (current) use of aspirin
CPT/HCPCS: 36415; 71045; 71275; 72192; 73502; 74018; 80048; 80053; 81003; 83605; 83735; 83880; 84484; 85025; 85379; 85384; 85610; 85730; 86886; 86900; 86901; 87040; 87081; 93005; 94640; 96374; 96375; 97112; 97116; 97530; 99291; C1781; J0456; J0694; J0696; J1170; J1644; J2250; J2270; J2405; J2704; J2765; J2930; J3010; J3475; J3490; J7060; Q0092; Q9967

== ENCOUNTER 2022-11-13 11:46 | Emergency (ER) | payer MEDICARE ==
[~2022-11-13] VITALS: Ht 162.6 cm; Wt 55.8 kg
[~2022-11-13 11:46] MED LIST changes: +ACET-9527 PO; +AZIT250T3 PO; +IBUP-2213 PO; -PRED20TA5 PO
[2022-11-13 11:54] VITALS: BP 136/63
--- NOTE | 2022-11-13 12:00 | NUR ---
pt in bed 12 and attached pt to O2 and monitoring manager.
--- NOTE | 2022-11-13 12:23 | NUR ---
ASSUMED PATIENT CARE, NURSING ASSESSMENT COMPLETED. SEEN AND EVALUATED BY LAN CLEMENT COMPLETED.
[2022-11-13 14:30] VITALS: BP 125/56
--- NOTE | 2022-11-13 14:31 | NUR ---
Patient discharged with v/s stable. Written and verbal after care instructions given and explained. Patient verbalized understanding. Ambulatory with steady gait. All questions addressed prior to discharge. Advised to follow up with PMD.
== END 2022-11-13 14:30 | disposition home or self-care (01) ==
LOC: MED 11:46
DX: S80.11XA Contusion of right lower leg, initial encounter (principal); R60.9 Edema, unspecified; M79.89 Other specified soft tissue disorders; I10 Essential (primary) hypertension; J44.9 Chronic obstructive pulmonary disease, unspecified; I25.10 Atherosclerotic heart disease of native coronary artery without angina pectoris; Z85.118 Personal history of other malignant neoplasm of bronchus and lung; Z79.899 Other long term (current) drug therapy; Z88.8 Allergy status to other drugs, medicaments and biological substances; W18.30XA Fall on same level, unspecified, initial encounter; Y93.89 Activity, other specified; Y92.89 Other specified places as the place of occurrence of the external cause; Y99.8 Other external cause status
CPT/HCPCS: 93970; 99284

== ENCOUNTER 2023-06-25 20:39 | Inpatient (IN) | payer MEDICARE ==
[~2023-06-25] VITALS: Ht 177.8 cm; Wt 59.0 kg
[2023-06-25 20:39] VITALS: BP 173/110; PULSE 150; RESP 38; TEMP 100.2; O2SAT 95
[2023-06-25 20:44] VITALS: BP 148/91; PULSE 144; O2SAT 97
[2023-06-25] MEDS ORDERED: ACETAMINOPHEN 325 MG TAB ONE (20:49)
[2023-06-25] MEDS ORDERED: NACL 0.9% 1,000 ML IV SCH (20:50)
[2023-06-25] MEDS ORDERED: MAG SULF 2000 MG/WATER PREMIX 50 ML IV ONE (20:55)
[2023-06-25] MEDS ORDERED: methylPREDNISolone SS 125 MG/2 ML VIAL IVP ONE (20:55)
[2023-06-25] MEDS ORDERED: ALBUTEROL 0.083% 2.5 MG/3 ML NEBU INH ONE (20:55)
[2023-06-25] MEDS ORDERED: IPRATROPIUM 0.02% 0.5 MG/2.5 ML NEBU INH ONE (20:55)
[2023-06-25] MEDS ORDERED: PIPERACILLIN/TAZOBACTAM 3.375 GM in DEXTROSE 5% 50 ML IV ONE (20:55)
[2023-06-25] MEDS ORDERED: PIPERACILLIN/TAZOBACTAM 3.375 GM VIAL IV ONE (21:02)
[2023-06-25 21:04] VITALS: PULSE 123; RESP 37; O2SAT 97
[2023-06-25 21:26] LABS: BLOOD GAS BASE EXCESS 2.2 mmol/L (-2.0-2.0); BLOOD GAS HCO3 27.1 mmol/L (22-26); BLOOD GAS O2 SAT% 99.7 % (92.0-98.5); BLOOD GAS PCO2 43.6 mmHg (35-45); BLOOD GAS PH 7.412 (7.35-7.45)
[2023-06-25 21:49] LABS: BASOPHILS # (AUTO) 0.1 K/uL (0.00-0.22); BASOPHILS % (AUTO) 0.4 % (0.0-2.0); HEMOGLOBIN 11.7 g/dL (12.0-18.0); LYMPHOCYTES # (AUTO) 0.4 K/uL (2.0-11.5); LYMPHOCYTES % (AUTO) 2.4 % (20.5-51.1); MEAN CORPUSCULAR HEMOGLOBIN 25 pg (27-31); MEAN CORPUSCULAR HGB CONC 32 g/dL (33-37); MEAN CORPUSCULAR VOLUME 79.9 fL (80-94); MONOCYTES % (AUTO) 6.1 % (1.7-9.3); NEUTROPHILS # (AUTO) 14.9 K/uL (1.8-7.7); NEUTROPHILS % (AUTO) 91.1 % (42.2-75.2); PLATELET COUNT (AUTO) 323 K/uL (140-450); RED BLOOD CELL COUNT(AUTO) 4.63 MIL/uL (4.20-6.10); RED CELL DISTRIBUTION WIDTH 17.3 % (11.6-13.7); WHITE BLOOD COUNT (AUTO) 16.3 K/uL (4.8-10.8)
[2023-06-25 22:01] LABS: INR 1.07 (0.8-1.2); PARTIAL THROMBOPLASTIN TIME 27.3 secs (22-35.6); PROTHROMBIN TIME 11.2 secs (10.8-13.4)
[2023-06-25 22:04] LABS: ALANINE AMINOTRANSFERASE 9 U/L (12-78); ALBUMIN 2.3 g/dL (3.4-5.0); ALKALINE PHOSPHATASE 72 U/L (50-136); ANION GAP 14.7 (8-16); ASPARTATE AMINOTRANSFERASE 19 U/L (15-37); CALCIUM 8.1 mg/dL (8.5-10.1); CARBON DIOXIDE 27.1 mmol/L (21-32); CHLORIDE 103 mmol/L (98-107); CREATININE 1.3 mg/dL (0.6-1.3); GLUCOSE 117 mg/dL (74-106); POTASSIUM 3.8 mmol/L (3.5-5.1); SODIUM SERUM 141 mmol/L (136-145); TOTAL BILIRUBIN 0.7 mg/dL (0.0-1.0); UREA NITROGEN, BLOOD 23 mg/dL (7-18)
[2023-06-25 22:07] LABS: CREATINE KINASE, TOTAL 76 U/L (39-308)
[2023-06-25 22:11] LABS: LACTIC ACID 1.8 mmol/L (0.4-2.0)
[2023-06-26] VITALS (8 sets, daily range): BP systolic 97–110; BP diastolic 56–62; PULSE 67–82; RESP 18–22; TEMP 97.2–97.4; O2SAT 95–98
[2023-06-26 00:12] LABS: FLU A ANTIGEN negative (NEGATIVE); FLU B ANTIGEN NEGATIVE (NEGATIVE)
[2023-06-26] MEDS ORDERED: MAG SULF 2000 MG/WATER PREMIX 50 ML IV PRN (02:00)
[2023-06-26] MEDS ORDERED: ACETAMINOPHEN 325 MG TAB PO PRN (02:00)
[2023-06-26] MEDS ORDERED: ONDANSETRON 4 MG/2 ML VIAL IVP PRN (02:00)
[2023-06-26] MEDS ORDERED: HYDROcodone/APAP 5/325 MG 1 TAB TAB PO PRN (02:00)
[2023-06-26] MEDS ORDERED: ZOLPIDEM 5 MG TAB PO PRN (02:00)
[2023-06-26] MEDS ORDERED: POTASSIUM CHLORIDE 10 MEQ TABER PO PRN (02:00)
[2023-06-26] MEDS ORDERED: MAGNESIUM OXIDE 400 MG TAB PO PRN (02:00)
[2023-06-26] MEDS ORDERED: LORazepam 1 MG TAB PO PRN (02:00)
[2023-06-26] MEDS ORDERED: ALBUTEROL SULFATE/IPRATROPIU 3 ML SOL IH PRN (03:55)
[2023-06-26] MEDS: methylPREDNISolone SS 40 MG/ML VIAL IVP SCH ×3 (06:15→18:43)
[2023-06-26] MEDS: ALBUTEROL SULFATE/IPRATROPIU 3 ML SOL IH SCH ×2 (08:10→13:41)
[2023-06-26] MEDS: DOCUSATE SODIUM 100 MG GELCAP PO SCH (09:00)
[2023-06-26] MEDS: ASPIRIN 81 MG TAB.CHEW PO SCH (09:15)
[2023-06-26] MEDS: FUROSEMIDE 40 MG/4 ML VIAL IVP SCH (12:10)
[2023-06-26] MEDS: ATORVASTATIN 20 MG TAB PO SCH (20:25)
[2023-06-26] MEDS ORDERED: amLODIPine 5 MG TAB PO SCH (21:00)
[2023-06-27] VITALS (12 sets, daily range): BP systolic 108–122; BP diastolic 54–80; PULSE 60–98; RESP 18–22; TEMP 97.1–99.1; O2SAT 93–100
[2023-06-27] MEDS: methylPREDNISolone SS 40 MG/ML VIAL IVP SCH ×4 (00:41→17:04)
[2023-06-27] MEDS: ALBUTEROL SULFATE/IPRATROPIU 3 ML SOL IH SCH ×4 (03:18→20:25)
[2023-06-27 05:48] LABS: BASOPHILS % (AUTO) 0.1 % (0.0-2.0); HEMATOCRIT 37.9 % (36-52); HEMOGLOBIN 12.1 g/dL (12.0-18.0); LYMPHOCYTES # (AUTO) 0.4 K/uL (2.0-11.5); MEAN CORPUSCULAR HEMOGLOBIN 25 pg (27-31); MEAN CORPUSCULAR HGB CONC 32 g/dL (33-37); MEAN CORPUSCULAR VOLUME 79.4 fL (80-94); MONOCYTES # (AUTO) 0.5 K/uL (0.8-1.0); MONOCYTES % (AUTO) 2.5 % (1.7-9.3); NEUTROPHILS # (AUTO) 20.6 K/uL (1.8-7.7); NEUTROPHILS % (AUTO) 95.4 % (42.2-75.2); PLATELET COUNT (AUTO) 330 K/uL (140-450); RED BLOOD CELL COUNT(AUTO) 4.77 MIL/uL (4.20-6.10); WHITE BLOOD COUNT (AUTO) 21.6 K/uL (4.8-10.8)
[2023-06-27 06:39] LABS: MAGNESIUM 1.9 mg/dL (1.8-2.4); PHOSPHORUS 4.2 mg/dL (2.5-4.9)
[2023-06-27 07:02] LABS: ALANINE AMINOTRANSFERASE 13 U/L (12-78); ALBUMIN 2.3 g/dL (3.4-5.0); ALKALINE PHOSPHATASE 70 U/L (50-136); ANION GAP 11.5 (8-16); ASPARTATE AMINOTRANSFERASE 23 U/L (15-37); CALCIUM 8.5 mg/dL (8.5-10.1); CARBON DIOXIDE 33.4 mmol/L (21-32); CHLORIDE 101 mmol/L (98-107); CREATININE 1.3 mg/dL (0.6-1.3); GLUCOSE 129 mg/dL (74-106); POTASSIUM 3.9 mmol/L (3.5-5.1); SODIUM SERUM 142 mmol/L (136-145); TOTAL BILIRUBIN 0.5 mg/dL (0.0-1.0); TOTAL PROTEIN, SERUM 6.4 g/dL (6.4-8.2); UREA NITROGEN, BLOOD 16 mg/dL (7-18)
[2023-06-27] MEDS: DOCUSATE SODIUM 100 MG GELCAP PO SCH (07:23)
[2023-06-27] MEDS: ASPIRIN 81 MG TAB.CHEW PO SCH (08:00)
[2023-06-27] MEDS: FUROSEMIDE 40 MG/4 ML VIAL IVP SCH ×2 (08:00→17:04)
[2023-06-27] MEDS ORDERED: levoFLOXacin 750 MG TAB PO SCH (09:00)
[2023-06-27] MEDS: metroNIDAZOLE 500 MG/NS PREMIX 100 ML IV SCH ×2 (13:00→21:47)
[2023-06-27] MEDS: ATORVASTATIN 20 MG TAB PO SCH (21:48)
[2023-06-28] VITALS (10 sets, daily range): BP systolic 110–132; BP diastolic 60–72; PULSE 57–86; RESP 16–20; TEMP 97.1–97.6; O2SAT 96–100
[2023-06-28] MEDS: methylPREDNISolone SS 40 MG/ML VIAL IVP SCH ×3 (00:36→12:00)
[2023-06-28] MEDS: ALBUTEROL SULFATE/IPRATROPIU 3 ML SOL IH SCH ×4 (00:51→19:18)
[2023-06-28] MEDS: metroNIDAZOLE 500 MG/NS PREMIX 100 ML IV SCH ×2 (05:07→15:24)
[2023-06-28 05:26] LABS: BASOPHILS % (AUTO) 0.1 % (0.0-2.0); HEMATOCRIT 34.6 % (36-52); LYMPHOCYTES # (AUTO) 0.2 K/uL (2.0-11.5); LYMPHOCYTES % (AUTO) 1.1 % (20.5-51.1); MEAN CORPUSCULAR HEMOGLOBIN 25 pg (27-31); MEAN CORPUSCULAR HGB CONC 32 g/dL (33-37); MEAN CORPUSCULAR VOLUME 79.5 fL (80-94); MONOCYTES # (AUTO) 0.7 K/uL (0.8-1.0); MONOCYTES % (AUTO) 3.6 % (1.7-9.3); NEUTROPHILS # (AUTO) 18.6 K/uL (1.8-7.7); NEUTROPHILS % (AUTO) 95.2 % (42.2-75.2); PLATELET COUNT (AUTO) 301 K/uL (140-450); RED BLOOD CELL COUNT(AUTO) 4.35 MIL/uL (4.20-6.10); RED CELL DISTRIBUTION WIDTH 17.3 % (11.6-13.7); WHITE BLOOD COUNT (AUTO) 19.5 K/uL (4.8-10.8)
[2023-06-28 06:38] LABS: ALANINE AMINOTRANSFERASE 16 U/L (12-78); ALBUMIN 1.9 g/dL (3.4-5.0); ALKALINE PHOSPHATASE 60 U/L (50-136); ANION GAP 9.4 (8-16); ASPARTATE AMINOTRANSFERASE 20 U/L (15-37); CALCIUM 8.1 mg/dL (8.5-10.1); CARBON DIOXIDE 35.5 mmol/L (21-32); CHLORIDE 100 mmol/L (98-107); CREATININE 1.4 mg/dL (0.6-1.3); GLUCOSE 131 mg/dL (74-106); MAGNESIUM 1.7 mg/dL (1.8-2.4); PHOSPHORUS 3.8 mg/dL (2.5-4.9); SODIUM SERUM 142 mmol/L (136-145); TOTAL BILIRUBIN 0.4 mg/dL (0.0-1.0); TOTAL PROTEIN, SERUM 5.8 g/dL (6.4-8.2); UREA NITROGEN, BLOOD 43 mg/dL (7-18)
[2023-06-28 06:40] LABS: POTASSIUM 2.9 mmol/L (3.5-5.1)
[2023-06-28] MEDS: DOCUSATE SODIUM 100 MG GELCAP PO SCH (09:00)
[2023-06-28] MEDS: FUROSEMIDE 40 MG/4 ML VIAL IVP SCH (09:52)
[2023-06-28] MEDS: ASPIRIN 81 MG TAB.CHEW PO SCH (09:53)
[2023-06-28] MEDS ORDERED: POTASSIUM CHLORIDE 10 MEQ TABER PO SCH ×2 (11:00→15:00)
[2023-06-28] MEDS ORDERED: FURO40TA9 PO (14:00)
[2023-06-28] MEDS ORDERED: METH4TAB1 PO (14:00)
[2023-06-29] MEDS ORDERED: FUROSEMIDE 40 MG TAB PO SCH (09:00)
[2023-06-29] MEDS ORDERED: levoFLOXacin 750 MG TAB PO SCH (09:00)
== END 2023-06-28 20:10 | disposition hospice, home (50) | DRG 871 ==
LOC: MED 20:39 → MTU 06-26 02:03
PROVIDERS: ADMIT Hospitalist; ATTEND Hospitalist
PROC: 5A09357 Assistance with Respiratory Ventilation, Less than 24 Consecutive Hours, Continuous Positive Airway Pressure (ICD-10-PCS; principal; 2023-06-26)
DX: A41.9 Sepsis, unspecified organism (principal); I21.4 Non-ST elevation (NSTEMI) myocardial infarction; J96.21 Acute and chronic respiratory failure with hypoxia; J15.9 Unspecified bacterial pneumonia; J44.1 Chronic obstructive pulmonary disease with (acute) exacerbation; J45.901 Unspecified asthma with (acute) exacerbation; I42.9 Cardiomyopathy, unspecified; J44.0 Chronic obstructive pulmonary disease with (acute) lower respiratory infection; Z20.822 Contact with and (suspected) exposure to COVID-19; E78.5 Hyperlipidemia, unspecified; E88.09 Other disorders of plasma-protein metabolism, not elsewhere classified; J20.9 Acute bronchitis, unspecified; E78.00 Pure hypercholesterolemia, unspecified; Z85.118 Personal history of other malignant neoplasm of bronchus and lung; Z88.8 Allergy status to other drugs, medicaments and biological substances; Z79.899 Other long term (current) drug therapy; Z99.81 Dependence on supplemental oxygen; Z79.82 Long term (current) use of aspirin
CPT/HCPCS: 36415; 36600; 71045; 80053; 82550; 82803; 83605; 83735; 83880; 84100; 84484; 85025; 85379; 85610; 85730; 87040; 87081; 87086; 93005; 94640; 94660; 96374; 96375; 99291; J1644; J1940; J2543; J2920; J2930; J3475; J3490; J7613; J7644

== ENCOUNTER 2023-09-30 11:07 | Inpatient (IN) | payer MEDICARE ==
[~2023-09-30] VITALS: Ht 170.2 cm; Wt 51.7 kg
[~2023-09-30 11:07] MED LIST changes: -ACET-9527 PO; -AZIT250T3 PO; +FURO40TA9 PO; -IBUP-2213 PO; +METH4TAB1 PO
[2023-09-30 11:25] VITALS: BP 133/77; PULSE 93; RESP 21; TEMP 98.1; O2SAT 90
[2023-09-30 12:16] VITALS: PULSE 89; RESP 20; O2SAT 99
[2023-09-30] MEDS: ALBUTEROL SULFATE/IPRATROPIU 3 ML SOL IH ONE (12:16)
[2023-09-30] MEDS ORDERED: cefTRIAXone 1,000 MG VIAL ONE (12:20)
[2023-09-30] MEDS: methylPREDNISolone SS 125 MG/2 ML VIAL IVP ONE (12:24)
[2023-09-30] MEDS: cefTRIAXone 1,000 MG in DEXT 5% MINI-BAG PLUS 50 ML IV ONE (12:25)
[2023-09-30 12:29] LABS: BASOPHILS # (AUTO) 0.1 K/uL (0.00-0.22); BASOPHILS % (AUTO) 0.5 % (0.0-2.0); EOSINOPHILS % (AUTO) 0.4 % (0.0-4.0); HEMATOCRIT 38.4 % (36-52); HEMOGLOBIN 12.7 g/dL (12.0-18.0); LYMPHOCYTES # (AUTO) 0.5 K/uL (2.0-11.5); LYMPHOCYTES % (AUTO) 4.6 % (20.5-51.1); MEAN CORPUSCULAR HEMOGLOBIN 26 pg (27-31); MEAN CORPUSCULAR HGB CONC 33 g/dL (33-37); MEAN CORPUSCULAR VOLUME 78.9 fL (80-94); MONOCYTES # (AUTO) 0.7 K/uL (0.8-1.0); NEUTROPHILS # (AUTO) 9.1 K/uL (1.8-7.7); NEUTROPHILS % (AUTO) 87.5 % (42.2-75.2); PLATELET COUNT (AUTO) 285 K/uL (140-450); RED BLOOD CELL COUNT(AUTO) 4.86 MIL/uL (4.20-6.10); RED CELL DISTRIBUTION WIDTH 19.6 % (11.6-13.7); WHITE BLOOD COUNT (AUTO) 10.4 K/uL (4.8-10.8)
[2023-09-30 13:03] LABS: ANION GAP 8.5 (8-16); CALCIUM 8.5 mg/dL (8.5-10.1); CARBON DIOXIDE 35.4 mmol/L (21-32); CHLORIDE 100 mmol/L (98-107); CREATININE 0.9 mg/dL (0.6-1.3); GLUCOSE 94 mg/dL (74-106); INR 1.06 (0.8-1.2); PARTIAL THROMBOPLASTIN TIME 28.4 secs (22-35.6); POTASSIUM 3.9 mmol/L (3.5-5.1); PROTHROMBIN TIME 11.1 secs (10.8-13.4); SODIUM SERUM 140 mmol/L (136-145); UREA NITROGEN, BLOOD 28 mg/dL (7-18)
[2023-09-30 13:04] LABS: ALANINE AMINOTRANSFERASE 18 U/L (12-78); ALBUMIN 1.8 g/dL (3.4-5.0); ALKALINE PHOSPHATASE 77 U/L (50-136); ASPARTATE AMINOTRANSFERASE 24 U/L (15-37); BILIRUBIN,DIRECT 0.2 mg/dL (0.0-0.3); LACTIC ACID 1.5 mmol/L (0.4-2.0); TOTAL BILIRUBIN 0.7 mg/dL (0.0-1.0)
[2023-09-30] MEDS ORDERED: ONDANSETRON 4 MG/2 ML VIAL IVP PRN (14:25)
[2023-09-30] MEDS ORDERED: ACETAMINOPHEN 325 MG TAB PO PRN (14:25)
[2023-09-30] MEDS ORDERED: HYDROcodone/APAP 5/325 MG 1 TAB TAB PO PRN (14:25)
[2023-09-30 15:55] VITALS: BP 148/86; PULSE 73; PULSE 78; RESP 18; RESP 20; TEMP 97.4; O2SAT 98
[2023-09-30 16:09] LABS: APPEARANCE,URINE CLEAR (CLEAR); BILIRUBIN,URINE NEGATIVE (NEGATIVE); BLOOD, URINE TRACE-I (NEGATIVE); COLOR,URINE YELLOW (YELLOW); LEUKOCYTE ESTERASE ,URINE NEGATIVE (NEGATIVE); NITRITE, URINE NEGATIVE (NEGATIVE); PROTEIN,URINE NEGATIVE (NEGATIVE); UGLUCOSE NEGATIVE (NEGATIVE); UROBILINOGEN,URINE 0.2 EU/dL (0.2 - 1)
[2023-09-30 16:35] LABS: BACTERIA,URINE None Seen /HPF (None Seen); RBC,URINE 0-5 /HPF (0-5); SQUAMOUS EPITHELIAL CELL,UR 0-3 (FEW) /LPF (0-3 (FEW)); WBC,URINE 0-5 /HPF (0-5)
[2023-09-30] MEDS: AZITHROMYCIN 250 MG in DEXTROSE 5% 250 ML IV SCH (19:00)
[2023-09-30] MEDS: IPRATROPIUM 0.02% 0.5 MG/2.5 ML NEBU INH SCH (19:46)
[2023-09-30 19:47] VITALS: PULSE 75; RESP 18; O2SAT 99
[2023-09-30 20:00] VITALS: BP 117/59; PULSE 74; PULSE 75; RESP 18; TEMP 97.4; O2SAT 99
[2023-09-30] MEDS ORDERED: methylPREDNISolone SS 40 MG in WATER STERILE 1 ML IV SCH (21:00)
[2023-09-30] MEDS: FUROSEMIDE 20 MG/2 ML VIAL IVP SCH (21:06)
[2023-09-30] MEDS: methylPREDNISolone SS 40 MG/ML VIAL IVP SCH (21:06)
[2023-10-01] VITALS (10 sets, daily range): BP systolic 117–147; BP diastolic 51–68; PULSE 55–85; RESP 16–20; TEMP 96.6–97.7; O2SAT 94–100
[2023-10-01 05:56] LABS: BASOPHILS % (AUTO) 0.1 % (0.0-2.0); HEMATOCRIT 35.8 % (36-52); HEMOGLOBIN 11.7 g/dL (12.0-18.0); LYMPHOCYTES # (AUTO) 0.4 K/uL (2.0-11.5); LYMPHOCYTES % (AUTO) 3.7 % (20.5-51.1); MEAN CORPUSCULAR HEMOGLOBIN 26 pg (27-31); MEAN CORPUSCULAR HGB CONC 33 g/dL (33-37); MEAN CORPUSCULAR VOLUME 78.9 fL (80-94); MONOCYTES # (AUTO) 0.4 K/uL (0.8-1.0); MONOCYTES % (AUTO) 3.2 % (1.7-9.3); NEUTROPHILS # (AUTO) 10.5 K/uL (1.8-7.7); PLATELET COUNT (AUTO) 267 K/uL (140-450); RED BLOOD CELL COUNT(AUTO) 4.54 MIL/uL (4.20-6.10); RED CELL DISTRIBUTION WIDTH 19.6 % (11.6-13.7); WHITE BLOOD COUNT (AUTO) 11.3 K/uL (4.8-10.8)
[2023-10-01 07:05] LABS: ALANINE AMINOTRANSFERASE 17 U/L (12-78); ALBUMIN 1.7 g/dL (3.4-5.0); ALKALINE PHOSPHATASE 68 U/L (50-136); ANION GAP 9.6 (8-16); ASPARTATE AMINOTRANSFERASE 20 U/L (15-37); CALCIUM 8.2 mg/dL (8.5-10.1); CHLORIDE 99 mmol/L (98-107); GLUCOSE 130 mg/dL (74-106); MAGNESIUM 1.4 mg/dL (1.8-2.4); POTASSIUM 3.6 mmol/L (3.5-5.1); SODIUM SERUM 140 mmol/L (136-145); TOTAL BILIRUBIN 0.4 mg/dL (0.0-1.0); TOTAL PROTEIN, SERUM 6.6 g/dL (6.4-8.2); UREA NITROGEN, BLOOD 34 mg/dL (7-18)
[2023-10-01] MEDS ORDERED: FUROSEMIDE 40 MG TAB PO SCH (09:00)
[2023-10-01] MEDS: amLODIPine 5 MG TAB PO SCH (09:11)
[2023-10-01] MEDS: ASPIRIN 325 MG TAB PO SCH (09:12)
[2023-10-01] MEDS: BENZONATATE 100 MG CAPLF PO SCH (09:12)
[2023-10-01] MEDS: MAG SULF 2000 MG/WATER PREMIX 50 ML IV SCH (14:59)
[2023-10-02] VITALS (11 sets, daily range): BP systolic 122–146; BP diastolic 53–75; PULSE 56–86; RESP 16–20; TEMP 96–97.3; O2SAT 95–100
[2023-10-02 05:48] LABS: BASOPHILS % (AUTO) 0.1 % (0.0-2.0); HEMATOCRIT 37.9 % (36-52); HEMOGLOBIN 12.3 g/dL (12.0-18.0); LYMPHOCYTES # (AUTO) 0.4 K/uL (2.0-11.5); LYMPHOCYTES % (AUTO) 2.2 % (20.5-51.1); MEAN CORPUSCULAR HEMOGLOBIN 26 pg (27-31); MEAN CORPUSCULAR HGB CONC 33 g/dL (33-37); MEAN CORPUSCULAR VOLUME 78.6 fL (80-94); MONOCYTES # (AUTO) 0.8 K/uL (0.8-1.0); MONOCYTES % (AUTO) 4.1 % (1.7-9.3); NEUTROPHILS % (AUTO) 93.6 % (42.2-75.2); PLATELET COUNT (AUTO) 275 K/uL (140-450); RED BLOOD CELL COUNT(AUTO) 4.82 MIL/uL (4.20-6.10); RED CELL DISTRIBUTION WIDTH 19.4 % (11.6-13.7); WHITE BLOOD COUNT (AUTO) 20.3 K/uL (4.8-10.8)
[2023-10-02 06:33] LABS: ALANINE AMINOTRANSFERASE 15 U/L (12-78); ALBUMIN 1.7 g/dL (3.4-5.0); ALKALINE PHOSPHATASE 68 U/L (50-136); ANION GAP 6.7 (8-16); ASPARTATE AMINOTRANSFERASE 18 U/L (15-37); CALCIUM 8.2 mg/dL (8.5-10.1); CARBON DIOXIDE 36.8 mmol/L (21-32); CHLORIDE 98 mmol/L (98-107); GLUCOSE 148 mg/dL (74-106); POTASSIUM 3.5 mmol/L (3.5-5.1); SODIUM SERUM 138 mmol/L (136-145); TOTAL BILIRUBIN 0.2 mg/dL (0.0-1.0); TOTAL PROTEIN, SERUM 6.6 g/dL (6.4-8.2); UREA NITROGEN, BLOOD 44 mg/dL (7-18)
[2023-10-02] MEDS: ALBUTEROL 0.083% 2.5 MG/3 ML NEBU INH PRN (09:11)
[2023-10-03] VITALS (7 sets, daily range): BP systolic 123; BP diastolic 54; PULSE 62–84; RESP 16–20; TEMP 96.6; O2SAT 94–99
[2023-10-03 05:10] LABS: BASOPHILS % (AUTO) 0.1 % (0.0-2.0); HEMATOCRIT 35.7 % (36-52); HEMOGLOBIN 11.7 g/dL (12.0-18.0); LYMPHOCYTES # (AUTO) 0.1 K/uL (2.0-11.5); LYMPHOCYTES % (AUTO) 0.8 % (20.5-51.1); MEAN CORPUSCULAR HEMOGLOBIN 26 pg (27-31); MEAN CORPUSCULAR HGB CONC 33 g/dL (33-37); MEAN CORPUSCULAR VOLUME 78.1 fL (80-94); MONOCYTES # (AUTO) 0.7 K/uL (0.8-1.0); MONOCYTES % (AUTO) 4.2 % (1.7-9.3); NEUTROPHILS # (AUTO) 16.4 K/uL (1.8-7.7); NEUTROPHILS % (AUTO) 94.9 % (42.2-75.2); PLATELET COUNT (AUTO) 260 K/uL (140-450); RED BLOOD CELL COUNT(AUTO) 4.56 MIL/uL (4.20-6.10); RED CELL DISTRIBUTION WIDTH 19.2 % (11.6-13.7); WHITE BLOOD COUNT (AUTO) 17.3 K/uL (4.8-10.8)
[2023-10-03 05:50] LABS: ANION GAP 9.2 (8-16); CARBON DIOXIDE 35.7 mmol/L (21-32); CHLORIDE 99 mmol/L (98-107); CREATININE 1.1 mg/dL (0.6-1.3); GLUCOSE 150 mg/dL (74-106); SODIUM SERUM 141 mmol/L (136-145); UREA NITROGEN, BLOOD 51 mg/dL (7-18)
[2023-10-03 05:58] LABS: POTASSIUM 2.9 mmol/L (3.5-5.1)
[2023-10-03] MEDS: POTASSIUM CHLORIDE 40 MEQ, LIDOCAINE 1% 25 MG in NACL 0.9% 250 ML IV ONE (09:47)
[2023-10-03] MEDS ORDERED: PRED20TA6 PO (13:30)
[2023-10-03] MEDS ORDERED: DOXY-690 PO (15:50)
== END 2023-10-03 16:45 | disposition home or self-care (01) | DRG 193 ==
LOC: MED 11:07 → MTU 14:29 → OBSVTOIN 14:29 → MMU 15:49
PROVIDERS: ADMIT Internal Medicine; ATTEND Internal Medicine
DX: J15.9 Unspecified bacterial pneumonia (principal); E43 Unspecified severe protein-calorie malnutrition; J44.1 Chronic obstructive pulmonary disease with (acute) exacerbation; I42.9 Cardiomyopathy, unspecified; J44.0 Chronic obstructive pulmonary disease with (acute) lower respiratory infection; I50.22 Chronic systolic (congestive) heart failure; C34.90 Malignant neoplasm of unspecified part of unspecified bronchus or lung; J96.11 Chronic respiratory failure with hypoxia; Z68.1 Body mass index [BMI] 19.9 or less, adult; I25.10 Atherosclerotic heart disease of native coronary artery without angina pectoris; I11.0 Hypertensive heart disease with heart failure; Z85.118 Personal history of other malignant neoplasm of bronchus and lung; Z88.8 Allergy status to other drugs, medicaments and biological substances; Z79.899 Other long term (current) drug therapy
CPT/HCPCS: 36415; 71045; 80048; 80053; 80076; 81001; 83605; 83735; 83880; 84484; 85025; 85610; 85730; 87040; 87081; 87086; 93005; 94640; 97116; 97163-GP; J0456; J0696; J1940; J2001; J2920; J2930; J3475; J3480; J7030; J7060; J7613; J7644

== ENCOUNTER 2023-11-05 12:02 | Observation (INO) | payer OTHER, MEDICARE ==
[~2023-11-05] VITALS: Ht 170.2 cm; Wt 47.6 kg
[~2023-11-05 12:02] MED LIST changes: +DOXY-690 PO; -METH4TAB1 PO; +PRED20TA6 PO
[2023-11-05 12:21] VITALS: BP 156/87; PULSE 97; RESP 22; TEMP 98; O2SAT 98
[2023-11-05 13:46] LABS: BASOPHILS % (AUTO) 0.2 % (0.0-2.0); EOSINOPHILS % (AUTO) 0.1 % (0.0-4.0); HEMATOCRIT 35.9 % (36-52); HEMOGLOBIN 11.5 g/dL (12.0-18.0); LYMPHOCYTES # (AUTO) 0.4 K/uL (2.0-11.5); MEAN CORPUSCULAR HEMOGLOBIN 26 pg (27-31); MEAN CORPUSCULAR HGB CONC 32 g/dL (33-37); MEAN CORPUSCULAR VOLUME 80.2 fL (80-94); MONOCYTES # (AUTO) 0.8 K/uL (0.8-1.0); MONOCYTES % (AUTO) 7.5 % (1.7-9.3); NEUTROPHILS # (AUTO) 9.8 K/uL (1.8-7.7); NEUTROPHILS % (AUTO) 88.2 % (42.2-75.2); PLATELET COUNT (AUTO) 292 K/uL (140-450); RED BLOOD CELL COUNT(AUTO) 4.48 MIL/uL (4.20-6.10); WHITE BLOOD COUNT (AUTO) 11.1 K/uL (4.8-10.8)
[2023-11-05 13:55] LABS: ANION GAP 7.7 (8-16); CALCIUM 8.8 mg/dL (8.5-10.1); CARBON DIOXIDE 36.4 mmol/L (21-32); CHLORIDE 101 mmol/L (98-107); CREATININE 0.8 mg/dL (0.6-1.3); GLUCOSE 100 mg/dL (74-106); POTASSIUM 4.1 mmol/L (3.5-5.1); SODIUM SERUM 141 mmol/L (136-145); UREA NITROGEN, BLOOD 33 mg/dL (7-18)
[2023-11-05 14:14] LABS: ALANINE AMINOTRANSFERASE 25 U/L (12-78); ALBUMIN 1.7 g/dL (3.4-5.0); ALKALINE PHOSPHATASE 76 U/L (50-136); ASPARTATE AMINOTRANSFERASE 32 U/L (15-37); BILIRUBIN,DIRECT 0.1 mg/dL (0.0-0.3); TOTAL BILIRUBIN 0.4 mg/dL (0.0-1.0); TOTAL PROTEIN, SERUM 6.2 g/dL (6.4-8.2)
[2023-11-05] MEDS: ALBUTEROL 0.083% 2.5 MG/3 ML NEBU INH ONE (15:02)
[2023-11-05] MEDS: IPRATROPIUM 0.02% 0.5 MG/2.5 ML NEBU INH ONE (15:02)
[2023-11-05 15:03] VITALS: PULSE 84; RESP 18; O2SAT 98; O2SAT 99
[2023-11-05] MEDS ORDERED: cefTRIAXone 1,000 MG VIAL ONE (15:03)
[2023-11-05] MEDS: methylPREDNISolone SS 125 MG/2 ML VIAL IVP ONE (15:21)
[2023-11-05] MEDS ORDERED: ASPIRIN 325 MG TAB ONE (18:37)
[2023-11-05] MEDS: ASPIRIN 325 MG TAB PO ONE (18:39)
[2023-11-05] MEDS ORDERED: ONDANSETRON 4 MG/2 ML VIAL IVP PRN (19:40)
[2023-11-05] MEDS ORDERED: MAG SULF 2000 MG/WATER PREMIX 50 ML IV PRN (19:40)
[2023-11-05] MEDS ORDERED: MAGNESIUM OXIDE 400 MG TAB PO PRN (19:40)
[2023-11-05] MEDS ORDERED: KCL 20 MEQ IN 100 mL PREMIX 200 ML IV PRN (19:40)
[2023-11-05] MEDS ORDERED: HYDROcodone/APAP 5/325 MG 1 TAB TAB PO PRN (19:40)
[2023-11-05] MEDS ORDERED: ACETAMINOPHEN 325 MG TAB PO PRN (19:40)
[2023-11-05] MEDS ORDERED: MORPHINE SULFATE 4 MG/ML SYR IVP PRN (19:40)
[2023-11-05] MEDS ORDERED: POTASSIUM CHLORIDE 10 MEQ TABER PO PRN (19:40)
[2023-11-05] MEDS ORDERED: AZITHROMYCIN 500 MG INJ VIAL IV ONE (20:02)
[2023-11-05] MEDS: AZITHROMYCIN 500 MG in DEXTROSE 5% 250 ML IV SCH (20:22)
[2023-11-05] MEDS ORDERED: AMLO5TAB PO (21:48)
[2023-11-05] MEDS ORDERED: ASPI-1822 PO (21:48)
[2023-11-05 22:15] VITALS: BP 159/89; PULSE 74; RESP 20; TEMP 96.6; O2SAT 100
[2023-11-05 22:24] VITALS: PULSE 82
[2023-11-06] VITALS (13 sets, daily range): BP systolic 121–149; BP diastolic 52–79; PULSE 64–89; RESP 17–20; TEMP 96.8–97.8; O2SAT 94–100
[2023-11-06] MEDS: ALBUTEROL SULFATE/IPRATROPIU 3 ML SOL IH SCH (01:36)
[2023-11-06] MEDS: methylPREDNISolone SS 40 MG/ML VIAL IVP SCH (05:12)
[2023-11-06 05:37] LABS: BASOPHILS % (AUTO) 0.1 % (0.0-2.0); HEMATOCRIT 33.5 % (36-52); HEMOGLOBIN 10.6 g/dL (12.0-18.0); LYMPHOCYTES # (AUTO) 0.3 K/uL (2.0-11.5); LYMPHOCYTES % (AUTO) 2.4 % (20.5-51.1); MEAN CORPUSCULAR HEMOGLOBIN 26 pg (27-31); MEAN CORPUSCULAR HGB CONC 32 g/dL (33-37); MEAN CORPUSCULAR VOLUME 80.5 fL (80-94); MONOCYTES # (AUTO) 0.3 K/uL (0.8-1.0); MONOCYTES % (AUTO) 2.4 % (1.7-9.3); NEUTROPHILS # (AUTO) 10.5 K/uL (1.8-7.7); NEUTROPHILS % (AUTO) 95.1 % (42.2-75.2); PLATELET COUNT (AUTO) 290 K/uL (140-450); RED BLOOD CELL COUNT(AUTO) 4.16 MIL/uL (4.20-6.10); RED CELL DISTRIBUTION WIDTH 20.1 % (11.6-13.7); WHITE BLOOD COUNT (AUTO) 11.1 K/uL (4.8-10.8)
[2023-11-06 06:39] LABS: CHLORIDE 102 mmol/L (98-107); SODIUM SERUM 142 mmol/L (136-145)
[2023-11-06 06:40] LABS: ASPARTATE AMINOTRANSFERASE 23 U/L (15-37); CALCIUM 8.5 mg/dL (8.5-10.1); GLUCOSE 137 mg/dL (74-106); UREA NITROGEN, BLOOD 34 mg/dL (7-18)
[2023-11-06 06:41] LABS: ALANINE AMINOTRANSFERASE 24 U/L (12-78); ALBUMIN 1.6 g/dL (3.4-5.0); MAGNESIUM 1.8 mg/dL (1.8-2.4); TOTAL PROTEIN, SERUM 5.8 g/dL (6.4-8.2)
[2023-11-06 07:30] LABS: ALKALINE PHOSPHATASE 66 U/L (50-136); TOTAL BILIRUBIN 0.3 mg/dL (0.0-1.0)
[2023-11-06] MEDS: DOCUSATE SODIUM 100 MG GELCAP PO SCH (08:16)
[2023-11-06] MEDS ORDERED: AZITHROMYCIN 500 MG in DEXTROSE 5% 250 ML IV SCH (09:00)
[2023-11-06] MEDS: ASPIRIN 81 MG TAB.CHEW PO SCH (09:48)
[2023-11-06] MEDS: FUROSEMIDE 40 MG TAB PO SCH (09:50)
[2023-11-06] MEDS ORDERED: ATORVASTATIN 20 MG TAB PO SCH (21:00)
[2023-11-06] MEDS ORDERED: amLODIPine 5 MG TAB PO SCH (21:00)
== END 2023-11-06 15:40 | disposition home or self-care (01) ==
LOC: MED 12:02 → MTU 19:43
PROVIDERS: ADMIT Internal Medicine; ATTEND Internal Medicine
DX: J44.1 Chronic obstructive pulmonary disease with (acute) exacerbation (principal); C34.91 Malignant neoplasm of unspecified part of right bronchus or lung; I11.0 Hypertensive heart disease with heart failure; I50.9 Heart failure, unspecified; J96.11 Chronic respiratory failure with hypoxia; E43 Unspecified severe protein-calorie malnutrition; I21.A1 Myocardial infarction type 2; R79.89 Other specified abnormal findings of blood chemistry; I25.10 Atherosclerotic heart disease of native coronary artery without angina pectoris; Z88.8 Allergy status to other drugs, medicaments and biological substances
CPT/HCPCS: 36415; 71045; 80048; 80053; 80076; 83735; 83880; 84484; 85025; 87040; 87081; 93005; 94640; 94760; 96365; 96366; 96367; 96372; 96375; 96376; 99291; G0378; J0456; J0696; J1644; J7060; J7613; J7644; J2920; J2930

== ENCOUNTER 2024-01-02 11:56 | Observation (INO) | payer MEDICARE, OTHER ==
[2024-01-02] VITALS (8 sets, daily range): BP systolic 119; BP diastolic 64; PULSE 85–98; RESP 14–24; TEMP 97.3; O2SAT 95–98
[~2024-01-02] VITALS: Ht 170.2 cm; Wt 46.9 kg
[2024-01-02] MEDS: ACETAMINOPHEN 325 MG TAB PO ONE (12:43)
[2024-01-02] MEDS: ALBUTEROL 0.083% 2.5 MG/3 ML NEBU INH ONE (12:49)
[2024-01-02] MEDS: IPRATROPIUM 0.02% 0.5 MG/2.5 ML NEBU INH ONE (12:49)
[2024-01-02 12:58] LABS: BASOPHILS % (AUTO) 0.3 % (0.0-2.0); HEMATOCRIT 29.4 % (36-52); HEMOGLOBIN 9.2 g/dL (12.0-18.0); LYMPHOCYTES # (AUTO) 0.1 K/uL (2.0-11.5); LYMPHOCYTES % (AUTO) 0.9 % (20.5-51.1); MEAN CORPUSCULAR HEMOGLOBIN 24 pg (27-31); MEAN CORPUSCULAR HGB CONC 31 g/dL (33-37); MEAN CORPUSCULAR VOLUME 78.1 fL (80-94); MONOCYTES # (AUTO) 0.4 K/uL (0.8-1.0); MONOCYTES % (AUTO) 3.1 % (1.7-9.3); NEUTROPHILS # (AUTO) 13.3 K/uL (1.8-7.7); NEUTROPHILS % (AUTO) 95.7 % (42.2-75.2); PLATELET COUNT (AUTO) 240 K/uL (140-450); RED BLOOD CELL COUNT(AUTO) 3.76 MIL/uL (4.20-6.10); RED CELL DISTRIBUTION WIDTH 19.4 % (11.6-13.7); WHITE BLOOD COUNT (AUTO) 13.9 K/uL (4.8-10.8)
[2024-01-02 14:12] LABS: CALCIUM 9.2 mg/dL (8.5-10.1); CARBON DIOXIDE 38.2 mmol/L (21-32); CHLORIDE 101 mmol/L (98-107); CREATININE 0.7 mg/dL (0.6-1.3); GLUCOSE 102 mg/dL (74-106); POTASSIUM 3.2 mmol/L (3.5-5.1); SODIUM SERUM 144 mmol/L (136-145); UREA NITROGEN, BLOOD 36 mg/dL (7-18)
[2024-01-02] MEDS: ASPIRIN 81 MG TAB.CHEW PO ONE (15:15)
[2024-01-02] MEDS: FUROSEMIDE 20 MG/2 ML VIAL IVP ONE (15:18)
[2024-01-02] MEDS: methylPREDNISolone SS 125 MG/2 ML VIAL IVP ONE (15:18)
[2024-01-02] MEDS ORDERED: ACETAMINOPHEN 325 MG TAB PO PRN (15:30)
[2024-01-02] MEDS ORDERED: ALBUTEROL 0.083% 2.5 MG/3 ML NEBU INH PRN (15:30)
[2024-01-02] MEDS: MORPHINE SULFATE 2 MG/ML SYR IVP PRN (17:48)
[2024-01-02] MEDS: IPRATROPIUM 0.02% 0.5 MG/2.5 ML NEBU INH SCH (20:47)
[2024-01-02] MEDS: ALBUTEROL 0.083% 2.5 MG/3 ML NEBU INH SCH (20:47)
[2024-01-02] MEDS ORDERED: methylPREDNISolone SS 40 MG in WATER STERILE 1 ML IV SCH (21:00)
[2024-01-02] MEDS: methylPREDNISolone SS 40 MG/ML VIAL IVP SCH (21:25)
[2024-01-02] MEDS: FUROSEMIDE 20 MG/2 ML VIAL IVP SCH (21:26)
[2024-01-02] MEDS: POTASSIUM CHLORIDE 10 MEQ TABER PO ONE (22:21)
[2024-01-03] VITALS (9 sets, daily range): BP systolic 123–151; BP diastolic 70–80; PULSE 67–100; RESP 16–20; TEMP 97.2–98.9; O2SAT 94–100
[2024-01-03 07:08] LABS: BASOPHILS % (AUTO) 0.1 % (0.0-2.0); HEMATOCRIT 30.4 % (36-52); HEMOGLOBIN 9.4 g/dL (12.0-18.0); LYMPHOCYTES # (AUTO) 0.1 K/uL (2.0-11.5); LYMPHOCYTES % (AUTO) 0.9 % (20.5-51.1); MEAN CORPUSCULAR HEMOGLOBIN 24 pg (27-31); MEAN CORPUSCULAR HGB CONC 31 g/dL (33-37); MEAN CORPUSCULAR VOLUME 78.6 fL (80-94); MONOCYTES # (AUTO) 0.3 K/uL (0.8-1.0); MONOCYTES % (AUTO) 2.7 % (1.7-9.3); NEUTROPHILS # (AUTO) 11.8 K/uL (1.8-7.7); NEUTROPHILS % (AUTO) 96.3 % (42.2-75.2); PLATELET COUNT (AUTO) 215 K/uL (140-450); RED BLOOD CELL COUNT(AUTO) 3.87 MIL/uL (4.20-6.10); WHITE BLOOD COUNT (AUTO) 12.3 K/uL (4.8-10.8)
[2024-01-03 07:35] LABS: ALANINE AMINOTRANSFERASE 38 U/L (12-78); ALBUMIN 1.3 g/dL (3.4-5.0); ALKALINE PHOSPHATASE 127 U/L (50-136); ANION GAP 5.5 (8-16); ASPARTATE AMINOTRANSFERASE 44 U/L (15-37); CALCIUM 8.6 mg/dL (8.5-10.1); CHLORIDE 100 mmol/L (98-107); CREATININE 0.8 mg/dL (0.6-1.3); GLUCOSE 132 mg/dL (74-106); MAGNESIUM 1.7 mg/dL (1.8-2.4); POTASSIUM 3.6 mmol/L (3.5-5.1); SODIUM SERUM 144 mmol/L (136-145); TOTAL BILIRUBIN 0.5 mg/dL (0.0-1.0); TOTAL PROTEIN, SERUM 5.6 g/dL (6.4-8.2); UREA NITROGEN, BLOOD 34 mg/dL (7-18)
[2024-01-03 07:46] LABS: CARBON DIOXIDE 42.1 mmol/L (21-32)
[2024-01-03] MEDS: ASPIRIN 81 MG TAB.CHEW PO SCH (09:46)
[2024-01-03] MEDS: amLODIPine 5 MG TAB PO SCH (09:46)
[2024-01-03] MEDS: ENOXAPARIN 40 MG/0.4 ML SYR SUBQ SCH (09:47)
[2024-01-03] MEDS: HYDROcodone/APAP 5/325 MG 1 TAB TAB PO PRN (14:15)
[2024-01-03] MEDS: MORPHINE TAB ER 15 MG TABER PO SCH (21:19)
[2024-01-03] MEDS: methylPREDNISolone SS 40 MG/ML VIAL IVP SCH (23:11)
[2024-01-04] VITALS (10 sets, daily range): BP systolic 134–146; BP diastolic 72–78; PULSE 70–91; RESP 16–22; TEMP 96.9–98.4; O2SAT 97–100
[2024-01-04] MEDS: FUROSEMIDE 20 MG TAB PO SCH (09:17)
[2024-01-04] MEDS ORDERED: MSCON15 PO (14:52)
[2024-01-04] MEDS ORDERED: PRED20TA6 PO (14:52)
[2024-01-05 01:24] VITALS: PULSE 88; RESP 16; O2SAT 98
[2024-01-05 04:00] VITALS: BP 117/69; PULSE 85; RESP 16; TEMP 97; O2SAT 99
[2024-01-05 08:00] VITALS: PULSE 70; RESP 16; RESP 18; O2SAT 100
[2024-01-05 11:46] VITALS: BP 140/80; PULSE 70; RESP 18; TEMP 98.7
== END 2024-01-05 12:47 | disposition home or self-care (01) ==
LOC: MED 11:56 → MTU 15:25
PROVIDERS: ADMIT Internal Medicine; ATTEND Internal Medicine
DX: S22.42XA Multiple fractures of ribs, left side, initial encounter for closed fracture (principal); S51.811A Laceration without foreign body of right forearm, initial encounter; S20.219A Contusion of unspecified front wall of thorax, initial encounter; S80.01XA Contusion of right knee, initial encounter; S40.021A Contusion of right upper arm, initial encounter; J44.9 Chronic obstructive pulmonary disease, unspecified; C34.90 Malignant neoplasm of unspecified part of unspecified bronchus or lung; I11.0 Hypertensive heart disease with heart failure; I50.9 Heart failure, unspecified; D64.9 Anemia, unspecified; E87.6 Hypokalemia; E78.5 Hyperlipidemia, unspecified; Z87.891 Personal history of nicotine dependence; Z23 Encounter for immunization; Z79.899 Other long term (current) drug therapy; W18.30XA Fall on same level, unspecified, initial encounter; Y93.89 Activity, other specified; Y92.89 Other specified places as the place of occurrence of the external cause; Y99.8 Other external cause status
CPT/HCPCS: 36415; 71101; 73090; 73562; 80048; 80053; 83735; 83880; 84484; 85025; 87081; 90471; 90715; 93005; 94640; 94760; 96372; 96374; 96375; 96376; 97163; 97530; 99285; G0378; J1650; J1940; J2270; J7613; J7644; J2919; J2920